=== PATIENT | female | born 1960 | race Caucasian/White ===

== ENCOUNTER 2017-08-10 14:00 | Outpatient (CLI) | payer OTHER ==
--- NOTE | 2017-08-23 11:19 | MMO ---
BILATERAL SCREENING MAMMOGRAM: Date: 08/10/17 COMPARISON: 10/10/12. HISTORY: Screening mammography. FINDINGS: This patient's mammogram was interpreted with the assistance of computer-aided detection. There are scattered fibroglandular densities. Stable intramammary node present on the right. No domin ant mass or architectural distortion. No concerning microcalcifications are seen. IMPRESSION: BIRADS 2: Benign Finding(s) Annual screening mammography recommended. POS: [facility]
== END 2017-08-10 14:01 | disposition home or self-care (01) ==
LOC: SCSMAMMO 14:00
PROVIDERS: ATTEND Family Medicine
DX: Z12.31 Encounter for screening mammogram for malignant neoplasm of breast (principal)
CPT/HCPCS: 77067

== ENCOUNTER 2017-11-02 13:43 | Outpatient (CLI) | payer OTHER ==
[2017-11-02] MEDS ORDERED: Iopamidol 370 76% 100 ML VIAL ONE (14:46)
== END 2017-11-02 13:44 | disposition home or self-care (01) ==
LOC: BICCT 13:43
PROVIDERS: ATTEND Specialist
DX: R10.9 Unspecified abdominal pain (principal)
CPT/HCPCS: 74177

== ENCOUNTER 2018-01-12 09:52 | Observation (INO) | payer OTHER ==
[2018-01-11 15:56] VITALS: BMI 38.9
[2018-01-12] MEDS ORDERED: Lidocaine 1% (PF) 30 ML VIAL ONE (11:29)
[2018-01-12] MEDS ORDERED: Nitroglycerin 100MG/250ML BOT 0 ML ONE (11:32)
[2018-01-12] MEDS ORDERED: Heparin 10,000 UNITS/1 ML VIAL ONE ×2 (11:32→12:51)
[2018-01-12] MEDS ORDERED: Verapamil 5 MG/2 ML VIAL ONE (11:32)
[2018-01-12] MEDS ORDERED: Nitroglycerin 50 MG/250 ML BOT 0 ML ONE (11:33)
[2018-01-12] MEDS ORDERED: Nitroglycerin 100MG/250ML BOT 250 ML ONE ×2 (11:33→11:38)
[2018-01-12] MEDS ORDERED: Fentanyl 100 MCG/2 ML VIAL ONE (12:09)
[2018-01-12] MEDS ORDERED: Midazolam HCl 2 mg/2 ml Vial ONE ×2 (12:10→12:52)
[2018-01-12] MEDS ORDERED: Nitroglycerin 0.4 MG TAB (25 Tab Bottle) SL PRN (13:12)
[2018-01-12] MEDS ORDERED: Acetaminophen/Codeine 30-300mg Tablet PO PRN (13:12)
[2018-01-12] MEDS ORDERED: Milk Of Magnesia 30 ML UDCUP PO PRN (13:12)
[2018-01-12] MEDS ORDERED: traMADol HCl 50 MG TAB PO PRN (13:12)
[2018-01-12] MEDS ORDERED: Mag-Al 1200 mg/1200 mg/30 ML UDCUP PO PRN (13:12)
[2018-01-12] MEDS ORDERED: Iopamidol 370 76% 100 ML VIAL ONE (13:13)
[2018-01-12] MEDS ORDERED: Sodium Chloride 0.9% 1,000 ML IV SCH (13:15)
[2018-01-12] MEDS: TICAGRELOR 90 MG TABLET PO SCH (20:55)
[2018-01-12] MEDS ORDERED: Atorvastatin Calcium 40 MG TAB PO SCH (21:00)
[2018-01-13 06:03] LABS: #Basophils 0.1 thou/uL (0.0-0.2); #Eosinphils 0.1 thou/uL (0.0-0.7); #Monocytes 0.8 thou/uL (0.11-0.59); #Neutrophils 5.2 thou/uL (1.40-6.50); %Eosinophils 1.6 % (0.0-10.0); %Lymphocytes 23.9 % (21.0-51.0); %Monocytes 10.2 % (0.0-10.0); %Neutrophils 63.3 % (42.0-75.0); Hemoglobin 12.7 g/dL (12.0-16.0); Mean Corpuscular HGB CONC 32.7 g/dL (32.0-36.0); Mean Corpuscular Hemoglobin 31.2 pg (27.0-31.0); Mean Corpuscular Volume 95.4 fL (78.0-98.0); Mean Platelet Volume 7.3 fL (7.4-10.4); Platelet Count 269 thou/uL (130-400); RBC Distribution Width 13.6 % (11.5-14.5); Red Blood Cell (RBC) Count 4.07 mill/uL (4.20-5.40); White Blood Cell (WBC) Count 8.2 thou/uL (4.8-10.8)
[2018-01-13 06:16] LABS: ALT (SGPT) 20 U/L (8-55); AST (SGOT) 22 U/L (5-34); Albumin 4.1 g/dL (3.5-5.0); Alkaline Phosphatase 67 U/L (40-150); Anion Gap 13 mmol/L (10-20); BUN (Urea Nitrogen) 14 mg/dL (9.8-20.1); Bilirubin, Total 0.8 mg/dL (0.2-1.2); Calc. Creatinine Clearance 131 mL/min (70-130); Calcium 9.6 mg/dL (7.8-10.44); Carbon Dioxide 23 mmol/L (22-29); Chloride 107 mmol/L (98-107); Estimated GFR-MDRD 72; Globulin 3.3 g/dL (2.4-3.5); Glucose 120 mg/dL (70-105); Protein, Total 7.4 g/dL (6.0-8.3); Sodium 139 mmol/L (136-145)
[2018-01-13 08:10] VITALS: BP 154/95; TEMP 97.7
[2018-01-13] MEDS: TICAGRELOR 90 MG TABLET PO SCH (08:22)
--- NOTE | 2018-01-13 10:41 | DIS ---
DATE OF ADMISSION: 01/12/2018 DATE OF DISCHARGE: 01/13/2018 DISCHARGE DIAGNOSIS: . PROCEDURE: Coronary angiography with stent placement to the circumflex artery. HOSPITAL COURSE: Ms. Khan is a very pleasant 57-year-old woman who recently presented with incr eased shortness of breath and chest pressure. She had a left bundle branch block in addition to abno rmal stress study. She failed medical therapy. Coronary angiography was then proposed. She agreed. She underwent coronary angiography on 01/12/2018. She was found to have severe stenosis present to the near ostial portion of an OM branch. No other significant disease present. She underwent succe ssful stent placement with a 3.0 x 20 mm Synergy stent to the area. This did cross the groove circum flex artery, but there was GUILLERMINA 3 flow noted with less than 50% stenosis at the ostium. She did well with no other complications. She did have a small hematoma noted post procedure. This resolved after treatment. Her hospital course was otherwise unremarkable. DISCHARGE MEDICATIONS: Aspirin 81 q.a.m., atorvastatin 40 daily, ticagrelor 90 mg b.i.d., Toprol-XL 25 at bedtime. CONDITION ON DISCHARGE: Stable. FOLLOWUP: Dr. Arenas in 1 week.
--- NOTE | 2018-01-15 10:30 | EKG ---
Test Reason : POST STENT-OM Blood Pressure : / mmHG Vent. Rate : 076 BPM Atrial Rate : 076 BPM P-R Int : 150 ms QRS Dur : 098 ms QT Int : 418 ms P-R-T Axes : 008 -15 007 degrees QTc Int : 470 ms Normal sinus rhythm Minimal voltage criteria for LVH, may be normal variant Borderline ECG When compared with ECG of 09-MAY-2016 11:05, T wave amplitude has decreased in Anterior leads Confirmed by DR. Tootie VICENTE ([id number]) on 01/15/2018 10:30:02 AM Referred By: GEORGE Confirmed By:DR. Tootie VICENTE
--- NOTE | 2018-01-15 10:33 | EKG ---
Test Reason : Blood Pressure : / mmHG Vent. Rate : 076 BPM Atrial Rate : 076 BPM P-R Int : 154 ms QRS Dur : 098 ms QT Int : 428 ms P-R-T Axes : 023 -08 025 degrees QTc Int : 481 ms Sinus rhythm with marked sinus arrhythmia Prolonged QT Possible anterior ischemia Abnormal ECG When compared with ECG of 12-JAN-2018 13:42, (Unconfirmed) No significant change was found Confirmed by DR. Tootie VICENTE ([id number]) on 01/15/2018 10:33:38 AM Referred By: GEORGE Confirmed By:DR. Tootie VICENTE
== END 2018-01-13 10:30 | disposition home or self-care (01) ==
LOC: CCL 09:52 → 2SW 17:51
PROVIDERS: ADMIT Internal Medicine Cardiovascular Disease; ATTEND Internal Medicine Cardiovascular Disease
PROC: 027034Z Dilation of Coronary Artery, One Artery with Drug-eluting Intraluminal Device, Percutaneous Approach (ICD-10-PCS; principal; 2018-01-13)
PROC: 4A023N7 Measurement of Cardiac Sampling and Pressure, Left Heart, Percutaneous Approach (ICD-10-PCS; 2018-01-13)
PROC: B2111ZZ Fluoroscopy of Multiple Coronary Arteries using Low Osmolar Contrast (ICD-10-PCS; 2018-01-13)
DX: I25.10 Atherosclerotic heart disease of native coronary artery without angina pectoris (principal); I44.7 Left bundle-branch block, unspecified; E78.2 Mixed hyperlipidemia; I10 Essential (primary) hypertension; Z79.899 Other long term (current) drug therapy; Z88.2 Allergy status to sulfonamides; Z88.8 Allergy status to other drugs, medicaments and biological substances
CPT/HCPCS: 36415; 80053; 85025; 85347; 92928; 92978; 93005; 93010; 93458; 96360; 96361; 99152; 99153; C1725; C1753; C1769; C1874; C1887; C9600; G0378; J1644; J2001; J2250; J3010

== ENCOUNTER 2018-02-01 16:44 | Outpatient (CLI) | payer OTHER ==
--- NOTE | 2018-02-01 17:37 | RAD ---
RIGHT HIP TWO VIEWS: 02/01/18 HISTORY: Right hip pain for one month. Some spurring along the lateral margin of the acetabulum. The possibility of an underlying labral inj ury should be considered. Joint space itself appears fairly well preserved. No acute changes. IMPRESSION: No evidence of fracture. Spurring along the lateral margin of the acetabulum. POS: [facility]
== END 2018-02-01 16:45 | disposition home or self-care (01) ==
LOC: SCSRAD 16:44
PROVIDERS: ATTEND Emergency Medicine
DX: M25.551 Pain in right hip (principal); M77.8 Other enthesopathies, not elsewhere classified

== ENCOUNTER 2018-03-16 13:39 | Outpatient (CLI) | payer OTHER ==
--- NOTE | 2018-03-16 14:25 | RAD ---
TWO VIEWS CHEST: Comparison: None. History: Dyspnea. FINDINGS: Two views of the chest shows an enlarged cardiomediastinal silhouette. There is no evidence of consol idation, mass, or pleural effusions. Degenerative changes are seen in the spine. A spinal stimulation device is seen in the midthoracic spine. IMPRESSION: No evidence of acute cardiopulmonary disease. POS: [facility]
== END 2018-03-16 13:40 | disposition home or self-care (01) ==
LOC: RAD 13:39
PROVIDERS: ATTEND Internal Medicine Pulmonary Disease
DX: R06.00 Dyspnea, unspecified (principal)
CPT/HCPCS: 71046

== ENCOUNTER 2018-03-30 05:36 | Emergency (ER) | payer OTHER ==
[2018-03-30] MEDS ORDERED: Adacel (T-DAP) 0.5 ML SYRINGE ONE (06:10)
[2018-03-30] MEDS ORDERED: Acetaminophen 500 MG TAB ONE (06:20)
--- NOTE | 2018-03-30 07:51 | CT ---
CT OF THE BRAIN WITHOUT CONTRAST: Date: 03/30/18 INDICATION: Tripped and fell, hitting head on concrete. Hematoma above left eye. COMPARISON: None. FINDINGS: There is a large left supraorbital scalp contusion. Small air fluid level seen within the left maxill halima sinus. No visible displaced facial fracture is grossly evident. Mastoid air cells are clear. No acute intracranial abnormality is evident. Septum pellucidum and third ventricle are midline. IMPRESSION: 1. No acute intracranial abnormality. 2. Large left supraorbital soft tissue hematoma. 3. Air fluid level within left maxillary sinus. No definite displaced facial fracture is grossly ev ident; however, this is incompletely evaluated on the current exam. Recommend consideration for CT of the face without IV contrast for further characterization. POS: [facility]
--- NOTE | 2018-03-30 08:11 | RAD ---
RIGHT HAND 3 VIEWS: Date: 03/30/18 INDICATION: Right hand pain. IMPRESSION: There is scattered osteoarthrosis of the right hand. No acute fracture or subluxation is evident. POS: [facility]
--- NOTE | 2018-03-30 08:13 | RAD ---
RIGHT ELBOW 4 VIEWS: Date: 03/30/18 INDICATION: Fall with right elbow pain. IMPRESSION: No acute fracture or subluxation is evident. No joint capsular distention. POS: [facility]
--- NOTE | 2018-03-30 08:14 | RAD ---
RIGHT KNEE 4 VIEWS: Date: 03/30/18 INDICATION: Fall with right knee pain. COMPARISON: None. IMPRESSION: There is mild osteoarthrosis of the right knee. No joint capsular distention is noted. Soft tissues a re normal appearing. POS: [facility]
== END 2018-03-30 07:01 | disposition home or self-care (01) ==
LOC: ERS 05:36
DX: S00.83XA Contusion of other part of head, initial encounter (principal); S80.211A Abrasion, right knee, initial encounter; F41.9 Anxiety disorder, unspecified; I25.10 Atherosclerotic heart disease of native coronary artery without angina pectoris; W19.XXXA Unspecified fall, initial encounter
CPT/HCPCS: 70450; 90471; 90715

== ENCOUNTER 2018-04-25 15:16 | Outpatient (CLI) | payer OTHER ==
--- NOTE | 2018-04-25 16:09 | RAD ---
TWO VIEWS CHEST: DATE: 04/25/2018. PROVIDED CLINICAL HISTORY: Chest pain and shortness of breath. FINDINGS: Comparison 03/16/2018. Cardiac and mediastinal silhouette is unchanged in appearance. No focal conso lidation, pleural fluid, or pneumothorax apparent. Dorsal column stimulator wires are partially visu alized. IMPRESSION: No evidence for an acute cardiopulmonary process. POS: [facility]
== END 2018-04-25 15:17 | disposition home or self-care (01) ==
LOC: SCSRAD 15:16
PROVIDERS: ATTEND Family Medicine
DX: R00.0 Tachycardia, unspecified (principal)
CPT/HCPCS: 71046

== ENCOUNTER 2018-05-03 10:11 | Outpatient (CLI) | payer OTHER ==
--- NOTE | 2018-05-03 13:00 | RAD ---
ESOPHOGRAM: History: Chest pain. Reflux. Dysphagia. FINDINGS: Air contrast and single column barium evaluation shows post-operative changes of the GE junction cons istent with prior fundoplication. Small portion of the gastric fundus extends superior to the stomach within the fundoplication. There is no evidence of obstruction. A 12 mm barium tablet traversed the esophagus without holdup. Prominent gastroesophageal reflux. Diminished primary and secondary parastolsis with prominent non-te rtiary contractions. IMPRESSION: 1. Post-operative changes at the GE junction with a recurrent hernia into the area of fundoplication to the left of the distal esophagus. 2. Large amount of gastroesophageal reflux and tertiary contractions of the esophagus. POS: [facility]
== END 2018-05-03 10:12 | disposition home or self-care (01) ==
LOC: RAD 10:11
PROVIDERS: ATTEND Physician Assistant Medical
DX: K21.9 Gastro-esophageal reflux disease without esophagitis (principal); K44.9 Diaphragmatic hernia without obstruction or gangrene; R13.10 Dysphagia, unspecified; K43.2 Incisional hernia without obstruction or gangrene; Z98.890 Other specified postprocedural states
CPT/HCPCS: 74220

== ENCOUNTER 2018-06-02 11:19 | Outpatient (CLI) | payer OTHER ==
--- NOTE | 2018-06-02 12:19 | RAD ---
SKULL SERIES FOUR VIEWS: History: Pain and swelling above left eye. FINDINGS: Calvarium appears unremarkable. No abnormal lytic lesion is seen. IMPRESSION: No acute findings. POS: [facility]
== END 2018-06-02 11:20 | disposition home or self-care (01) ==
LOC: SCSRAD 11:19
PROVIDERS: ATTEND Nurse Practitioner Family
DX: T14.8XXA Other injury of unspecified body region, initial encounter (principal); R51 Headache; R22.0 Localized swelling, mass and lump, head; R29.810 Facial weakness; W19.XXXS Unspecified fall, sequela
CPT/HCPCS: 70260

== ENCOUNTER 2018-07-05 17:10 | Emergency (ER) | payer OTHER ==
--- NOTE | 2018-07-05 18:03 | RAD ---
XR Chest 1 View Portable History: [Fever] Comparison: Chest radiograph April 25, 2018 Findings: There are bibasilar airspace opacities as well as lingular opacity. No pneumothorax. No sig nificant effusion. Dorsal constellate is present, similar. Impression: Findings concerning for bibasilar multifocal bronchopneumonia. Follow-up after treatment recommended.
[2018-07-05] MEDS ORDERED: Acetaminophen 500 MG TAB ONE (18:07)
[2018-07-05 18:20] LABS: #Basophils 0.1 thou/uL (0.0-0.2); #Eosinphils 0.1 thou/uL (0.0-0.7); #Lymphocytes 2.4 thou/uL (1.20-3.40); #Monocytes 1.2 thou/uL (0.11-0.59); #Neutrophils 7.8 thou/uL (1.40-6.50); %Basophils 0.6 % (0.0-1.0); %Lymphocytes 21.1 % (21.0-51.0); %Monocytes 10.6 % (0.0-10.0); %Neutrophils 66.8 % (42.0-75.0); Mean Corpuscular HGB CONC 33.9 g/dL (32.0-36.0); Mean Corpuscular Hemoglobin 32.3 pg (27.0-31.0); Mean Corpuscular Volume 95.4 fL (78.0-98.0); Mean Platelet Volume 7.2 fL (7.4-10.4); Platelet Count 265 thou/uL (130-400); RBC Distribution Width 13.9 % (11.5-14.5); Red Blood Cell (RBC) Count 4.03 mill/uL (4.20-5.40); White Blood Cell (WBC) Count 11.6 thou/uL (4.8-10.8)
[2018-07-05 18:54] LABS: ALT (SGPT) 18 U/L (8-55); AST (SGOT) 27 U/L (5-34); Albumin 4.6 g/dL (3.5-5.0); Alkaline Phosphatase 65 U/L (40-150); Anion Gap 14 mmol/L (10-20); BUN (Urea Nitrogen) 9 mg/dL (9.8-20.1); Bilirubin, Total 0.9 mg/dL (0.2-1.2); Calc. Creatinine Clearance 0 mL/min (70-130); Calcium 10.2 mg/dL (7.8-10.44); Carbon Dioxide 27 mmol/L (22-29); Chloride 100 mmol/L (98-107); Estimated GFR-MDRD 52; Globulin 3.4 g/dL (2.4-3.5); Glucose 98 mg/dL (70-105); Potassium 4.3 mmol/L (3.5-5.1); Sodium 137 mmol/L (136-145)
[2018-07-05] MEDS ORDERED: cefTRIAXone\\ROCEPHIN 2 GM VIAL ONE (19:20)
[2018-07-05] MEDS ORDERED: Azithromycin 500 MG VIAL ONE (19:21)
[2018-07-05 20:03] LABS: Troponin I Less than 0.010 ng/mL (< 0.028)
[2018-07-05] MEDS ORDERED: Doxycycline 100 MG CAP PO SCH (20:45)
== END 2018-07-05 20:57 | disposition home or self-care (01) ==
LOC: ERS 17:10
DX: J18.9 Pneumonia, unspecified organism (principal); I10 Essential (primary) hypertension; E78.5 Hyperlipidemia, unspecified; I25.10 Atherosclerotic heart disease of native coronary artery without angina pectoris; F41.9 Anxiety disorder, unspecified; Z79.899 Other long term (current) drug therapy; Z79.82 Long term (current) use of aspirin
CPT/HCPCS: 36415; 71045; 80053; 83605; 84484; 85025; 87040; 87804; 93005; 96365; J0456; J0696; J7620

== ENCOUNTER 2018-08-03 14:37 | Outpatient (CLI) | payer OTHER ==
--- NOTE | 2018-08-03 14:58 | RAD ---
EXAM: Chest 2 views: HISTORY: Community-acquired pneumonia, bilateral persistent cough COMPARISON: None. FINDINGS: Stable dorsal column stimulator leads. Stable hiatal hernia. Heart size:Borderline but stable. Lungs:Clear of acute process. Atherosclerotic changes of the aorta. No confluent pneumonia, overt edema, pleural effusion, pneumothorax, or other significant acute proce ss. IMPRESSION: Stable exam. Atherosclerosis of the aorta. No acute intrathoracic disease.
== END 2018-08-03 14:38 | disposition home or self-care (01) ==
LOC: SCSRAD 14:37
PROVIDERS: ATTEND Family Medicine
DX: J18.9 Pneumonia, unspecified organism (principal); I70.0 Atherosclerosis of aorta
CPT/HCPCS: 71046

== ENCOUNTER 2018-08-16 13:10 | Outpatient (CLI) | payer OTHER ==
--- NOTE | 2018-08-16 16:29 | MMO ---
Bilateral MAMMO Bilat Screen DDI. CLINICAL HISTORY: Patient is 57 years old and is seen for screening. The patient has the following family history of breast cancer: mother, at age 78, malignant (generic). The patient has no personal history of cancer. VIEWS: The views performed were: bilateral craniocaudal and bilateral mediolateral oblique. FILMS COMPARED: The present examination has been compared to prior imaging studies performed at [facility] on 10/10/2012, and at [facility] on 08/10/2017. This study has been interpreted with the assistance of computer-aided detection. MAMMOGRAM FINDINGS: There are scattered fibroglandular densities. Finding 1: There is a stable intramammary lymph node seen in the right breast. Finding 2: There are benign appearing calcifications seen in the right breast. There are no suspicious masses, suspicious calcifications, or new areas of architectural distortion. IMPRESSION: THERE IS NO MAMMOGRAPHIC EVIDENCE OF MALIGNANCY. A ROUTINE FOLLOW-UP MAMMOGRAM IN 1 YEAR IS RECOMMENDED. ACR BI-RADS Category 2 - Benign finding MAMMOGRAPHY NOTE: 1. A negative mammogram report should not delay a biopsy if a dominant of clinically suspicious mass is present. 2. Approximately 10% to 15% of breast cancers are not detected by mammography. 3. Adenosis and dense breasts may obscure an underlying neoplasm.
== END 2018-08-16 13:11 | disposition home or self-care (01) ==
LOC: SCSMAMMO 13:10
PROVIDERS: ATTEND Family Medicine
DX: Z12.31 Encounter for screening mammogram for malignant neoplasm of breast (principal); Z80.3 Family history of malignant neoplasm of breast
CPT/HCPCS: 77067

== ENCOUNTER 2018-08-18 13:16 | Outpatient (CLI) | payer OTHER | END 2018-08-18 13:17 | disposition home or self-care (01) | LOC: CP 13:16 | PROVIDERS: ATTEND Internal Medicine Pulmonary Disease | DX: R06.00 Dyspnea, unspecified (principal) | CPT/HCPCS: 94060; 94727; 94729 ==

== ENCOUNTER 2018-08-23 14:55 | Outpatient (CLI) | payer OTHER ==
--- NOTE | 2018-08-23 15:50 | CT ---
EXAM: High-resolution CT of the chest without contrast HISTORY: Chest pain COMPARISON: None TECHNIQUE: Multiple contiguous axial images were obtained in a CT the chest without contrast. Thin sl ices were taken at large intervals. This was performed in the supine and prone positions. Coronal reformats were performed. FINDINGS: HEART: Normal in size without focal cardiac abnormality. Calcifications in the coronary arteries. MEDIASTINUM: No hilar or mediastinal lymphadenopathy. Evaluation of the mediastinum is limited withou t IV contrast. There is a moderate hiatal hernia. LUNGS: No focal infiltrates, nodules, or masses. Evaluation is limited given the large intervals. No significant interstitial thickening. No honeycombing. No bronchiectasis. No emphysematous changes. PLEURAL SPACE: No pneumothorax or pleural effusion. CHEST WALL SOFT TISSUES: Unremarkable OSSEOUS STRUCTURES: Degenerative changes in the spine. There is a spinal stimulation device with its tip at T5. VISUALIZED SUBDIAPHRAGMATIC STRUCTURES: Unremarkable IMPRESSION: 1. No significant interstitial lung disease. 2. Moderate hiatal hernia
== END 2018-08-23 14:56 | disposition home or self-care (01) ==
LOC: BICCT 14:55
PROVIDERS: ATTEND Internal Medicine Pulmonary Disease
DX: J84.10 Pulmonary fibrosis, unspecified (principal); K44.9 Diaphragmatic hernia without obstruction or gangrene
CPT/HCPCS: 71250

== ENCOUNTER 2018-12-05 15:08 | Inpatient (IN) | payer OTHER ==
--- NOTE | 2018-12-05 16:02 | RAD ---
1 VIEW CHEST: Date: 12/05/18 COMPARISON: 11/19/18. HISTORY: Pain and shortness of breath. FINDINGS: Slight elongation of the aorta. There is cardiomegaly. Pulmonary vessels are within normal limits. Co stophrenic angles are clear. Patchy opacities in the left mid lung. Correlate for atelectasis or poss ible infiltrate. No pneumothorax or acute osseous abnormalities. Dorsal column stimulator is noted. IMPRESSION: Increased interstitial opacities in the left mid lung which may represent atelectasis or infiltrate. Continued surveillance to ensure resolution. POS: [facility]
[2018-12-05 16:07] LABS: #Basophils 0.1 thou/uL (0.0-0.2); #Eosinphils 0.2 thou/uL (0.0-0.7); #Lymphocytes 1.8 thou/uL (1.20-3.40); #Neutrophils 4.4 thou/uL (1.40-6.50); %Basophils 0.9 % (0.0-1.0); %Eosinophils 2.5 % (0.0-10.0); %Lymphocytes 24.6 % (21.0-51.0); %Monocytes 13.2 % (0.0-10.0); %Neutrophils 58.8 % (42.0-75.0); Hemoglobin 9.9 g/dL (12.0-16.0); Mean Corpuscular HGB CONC 32.8 g/dL (32.0-36.0); Mean Corpuscular Volume 91.3 fL (78.0-98.0); Platelet Count 339 thou/uL (130-400); RBC Distribution Width 16.8 % (11.5-14.5); Red Blood Cell (RBC) Count 3.32 mill/uL (4.20-5.40); White Blood Cell (WBC) Count 7.5 thou/uL (4.8-10.8)
[2018-12-05 16:23] LABS: Bilirubin Negative (Negative); Blood, Urine Negative (Negative); Clarity Clear (Clear); Glucose, Urine (Dipstick) Normal (Negative); Leukocyte Negative Leu/uL (Negative); Nitrite Negative (Negative); Protein, Urine (Dipstick) Negative (Neg-Trace); Urobilinogen Normal mg/dL (Less than 2)
[2018-12-05 16:28] LABS: ALT (SGPT) 12 U/L (8-55); AST (SGOT) 18 U/L (5-34); Albumin 4.3 g/dL (3.5-5.0); Alkaline Phosphatase 75 U/L (40-110); Anion Gap 12 mmol/L (10-20); BUN (Urea Nitrogen) 11 mg/dL (9.8-20.1); Bilirubin, Total 0.4 mg/dL (0.2-1.2); CK (CPK) 100 U/L (29-168); Calc. Creatinine Clearance 0 mL/min (70-130); Calcium 9.3 mg/dL (7.8-10.44); Carbon Dioxide 28 mmol/L (22-29); Chloride 106 mmol/L (98-107); Estimated GFR-MDRD 59; Globulin 2.9 g/dL (2.4-3.5); Glucose 151 mg/dL (70-105); Potassium 4.2 mmol/L (3.5-5.1); Protein, Total 7.2 g/dL (6.0-8.3); Sodium 142 mmol/L (136-145)
[2018-12-05] MEDS ORDERED: Ondansetron PF 4 MG/2 ML Vial ONE ×2 (17:23→23:27)
[2018-12-05] MEDS ORDERED: Aspirin Chewable 81 MG TAB ONE (17:43)
[2018-12-05] MEDS ORDERED: Aspirin 325 MG TAB ONE (17:43)
[2018-12-05 20:08] LABS: Troponin I Less than 0.010 ng/mL (< 0.028)
[2018-12-05] MEDS ORDERED: Acetaminophen 650 MG Suppository PR PRN (21:11)
[2018-12-05] MEDS ORDERED: Ondansetron ODT 4 MG TAB PO PRN (21:11)
[2018-12-05] MEDS: Acetaminophen 325 MG TAB PO PRN (21:45)
[2018-12-05] MEDS ORDERED: Acetaminophen 325 MG TAB ONE (21:45)
[2018-12-05] MEDS ORDERED: Nitroglycerin 0.4 MG TAB (25 Tab Bottle) SL PRN (23:09)
[2018-12-05] MEDS ORDERED: Morphine 2 MG/ML SYRINGE ONE (23:22)
[2018-12-05] MEDS: Morphine 2 MG/ML SYRINGE SLOW IVP PRN (23:23)
[2018-12-05] MEDS: Ondansetron PF 4 MG/2 ML Vial IVP PRN (23:29)
[2018-12-06 00:13] LABS: Troponin I Less than 0.010 ng/mL (< 0.028)
[2018-12-06 03:35] LABS: #Basophils 0.1 thou/uL (0.0-0.2); #Eosinphils 0.2 thou/uL (0.0-0.7); #Lymphocytes 2.2 thou/uL (1.20-3.40); #Monocytes 0.7 thou/uL (0.11-0.59); #Neutrophils 2.2 thou/uL (1.40-6.50); %Basophils 1.3 % (0.0-1.0); %Monocytes 13.1 % (0.0-10.0); %Neutrophils 40.6 % (42.0-75.0); Hemoglobin 8.7 g/dL (12.0-16.0); Mean Corpuscular HGB CONC 33.5 g/dL (32.0-36.0); Mean Corpuscular Hemoglobin 30.8 pg (27.0-31.0); Platelet Count 278 thou/uL (130-400); RBC Distribution Width 16.8 % (11.5-14.5); Red Blood Cell (RBC) Count 2.82 mill/uL (4.20-5.40); White Blood Cell (WBC) Count 5.3 thou/uL (4.8-10.8)
[2018-12-06] MEDS ORDERED: Ondansetron ODT 4 MG TAB ONE (04:11)
[2018-12-06 04:13] LABS: Anion Gap 9 mmol/L (10-20); BUN (Urea Nitrogen) 15 mg/dL (9.8-20.1); Calc. Creatinine Clearance 0 mL/min (70-130); Calcium 8.4 mg/dL (7.8-10.44); Carbon Dioxide 26 mmol/L (22-29); Chloride 109 mmol/L (98-107); Estimated GFR-MDRD 74; Glucose 126 mg/dL (70-105); Potassium 3.6 mmol/L (3.5-5.1); Sodium 140 mmol/L (136-145)
[2018-12-06] MEDS ORDERED: Morphine 2 MG/ML SYRINGE ONE (04:13)
[2018-12-06] MEDS: Morphine 2 MG/ML SYRINGE SLOW IVP PRN ×2 (04:15→11:13)
[2018-12-06] MEDS ORDERED: Acetaminophen 325 MG TAB ONE (06:16)
[2018-12-06] MEDS: Acetaminophen 325 MG TAB PO PRN (06:17)
--- NOTE | 2018-12-06 06:19 | HP ---
PRIMARY CARE DOCTOR: Dr. Brian Dorado. CODE STATUS: Full code. TIME OF EVALUATION: 8:05 a.m. CHIEF COMPLAINT: Chest pain. HISTORY OF PRESENT ILLNESS: A 58-year-old female with past medical history of hypertension; hyperlipidemia; osteoarthritis; and coronary artery disease, status post stents, came to the hospital after having chest pain for the past couple of days with no clear triggers, no alleviating factors, associated with shortness of breath that is exertional. Symptoms were moderate. The pain was in the substernal area, was a pressure-like pain. REVIEW OF SYSTEMS: CONSTITUTIONAL: No fever, chills, or generalized weakness. RESPIRATORY: No cough or sputum production. CARDIOVASCULAR: Patient has chest pain. No palpitations. GASTROINTESTINAL: No nausea, vomiting, diarrhea, or abdominal pain. ICE SKATING INSTRUCTOR: No dizziness, headache, or feeling lightheaded. GENITOURINARY: No burning with urination. EXTREMITIES: No leg swelling. All other systems were reviewed and negative, except for the findings mentioned above. PAST MEDICAL HISTORY: Positive for the findings mentioned in the HPI. PAST SURGICAL HISTORY: Positive for cholecystectomy, cervical ablation, carpal tunnel syndrome, hernia repair, right foot surgery, right knee surgery, exploratory abdominal surgery, stomach surgery. PSYCHIATRIC HISTORY: Anxiety and depression. FAMILY HISTORY: Reviewed, noncontributory for current presentation. SOCIAL HISTORY: No alcohol. No drug use. No smoking history. KNOWN ALLERGIES: Infliximab and sulfa. REPORTED MEDICATIONS: 1. Benicar. 2. Pravastatin. 3. Aspirin. 4. Plavix. 5. Metoprolol. 6. Sertraline. 7. Methotrexate. 8. Ranexa. PHYSICAL EXAMINATION: VITAL SIGNS: On presentation, blood pressure 118/58 with heart rate 85, respiratory rate was 22, temperature 98, pain 10/10, and oxygen saturation was 98% on room air. GENERAL APPEARANCE: The patient is alert and oriented, in no acute distress. HEENT: Eyes; normal conjunctivae. Moist oral mucosa. Anicteric. No JVD. RESPIRATORY: Bilateral air entry. No rales. No wheezes. Symmetric expansion. CARDIOVASCULAR: Normal rate, regular rhythm. No murmurs. No edema. ABDOMEN: Soft. Normal bowel sounds. MUSCULOSKELETAL: Baseline range of motion and strength. SKIN: Warm and intact. No pallor. No rash. No redness. Capillary refill seems to be intact. NEUROLOGIC: No evidence of any new focal weakness. Cranial nerves seem to be intact. PSYCH: Patient is in good mood. No anxiety. Optimal judgment. DATA REVIEWED: EKG was reviewed. Patient has normal sinus rhythm with a ventricular rate of 75 with TN 160, QRS 84, and QT corrected 484. LABORATORY DATA: Reviewed. The patient has white count 7.5, hemoglobin 9.9, MCV 91.3, and platelet count 339. Chemistry was normal, except for the glucose being 151. Urine was done, was normal. ASSESSMENT AND PLAN: The patient will be placed in the hospital with following medical problems: 1. Chest pain, rule out acute coronary syndrome. Patient has previous coronary artery disease, was taking medications on a daily basis reportedly, reconcile home medications. For coronary artery disease, we will trend troponins. We will monitor on tele. 2. Patient has chronic normocytic anemia, unclear etiology. This is chronic, stable. We will monitor hemoglobin, can be followed as outpatient. 3. Controlled hypertension. Reconcile home medications. Adjust if needed. 4. Hyperlipidemia. Low-cholesterol diet is advised. Reconcile home medications. 5. Deep venous thrombosis prophylaxis. Job ID: [id number] [facility]
[2018-12-06] MEDS ORDERED: Enoxaparin Sodium 40 MG/0.4 ML SYRINGE SC SCH (09:00)
[2018-12-06 09:38] VITALS: BMI 38.3
[2018-12-06] MEDS ORDERED: Clopidogrel Bisulfate 75 MG TAB PO SCH (11:00)
[2018-12-06] MEDS ORDERED: FLU VACC QS2019-20(6MOS UP)/PF 60 MCG/0.5 ML SYRINGE IM ONE (12:00)
[2018-12-06] MEDS ORDERED: Ondansetron PF 4 MG/2 ML Vial ONE (12:14)
[2018-12-06] MEDS ORDERED: PROPOFOL 200 MG/20 ML VIAL ONE (12:14)
[2018-12-06] MEDS ORDERED: ePHEDrine 50 MG/ML VIAL ONE (12:14)
[2018-12-06] MEDS ORDERED: Rocuronium Bromide 10 MG/ML (10ML VIAL) ONE (12:14)
[2018-12-06] MEDS ORDERED: Lidocaine 1% PF 5 ML VIAL ONE (12:14)
[2018-12-06] MEDS ORDERED: EPINEPHrine 1 MG/10 ML Abboject SYRINGE ONE (12:14)
[2018-12-06] MEDS ORDERED: PHENYLEPHRINE-NS 100 MCG/ML 10 ML SYRINGE ONE (12:14)
[2018-12-06] MEDS ORDERED: Succinylcholine Chloride 20 MG/ML 10 ml SYRINGE FS ONE (12:14)
[2018-12-06] MEDS ORDERED: Glycopyrrolate 0.2 MG/ML 5 ML SYRINGE ONE (12:14)
[2018-12-06] MEDS: Ondansetron PF 4 MG/2 ML Vial IVP PRN (14:18)
[2018-12-06] MEDS ORDERED: Sodium Chloride 0.9% 1,000 ML IV SCH ×3 (14:30→15:30)
[2018-12-06] MEDS ORDERED: Pantoprazole 40 MG VIAL IVP SCH (14:30)
[2018-12-06 15:02] LABS: Hemoglobin 8.3 g/dL (12.0-16.0)
[2018-12-06] MEDS ORDERED: Acetaminophen 650 MG in Premix Bag 1 BAG IVPB PRN (16:05)
--- NOTE | 2018-12-06 16:24 | RAD ---
KUB: 12/06/18 HISTORY: NG tube placement. The bowel gas patter is nonobstructed. An NG tube is present with the tip in the stomach. No renal ca lculi are seen. A dorsal column stimulator is partially visualized. IMPRESSION: NG tube with the tip in the stomach. POS: [facility]
--- NOTE | 2018-12-06 16:24 | CON ---
DATE OF CONSULTATION: Consultation and H and P HISTORY OF PRESENT ILLNESS: This is a 58-year-old female with a past medical history significant for coronary artery disease and a recently repaired bleeding gastric ulcer. She is coming into the hospital after approximately a week of shortness of breath and three days of right-sided sharp rib pain radiating from her back to her epigastric area. She reports that the shortness of breath is present when she exerts herself including walking up two flights of stairs, with this normally not make her short of breath. She denies cough, syncope, palpitations or headache. She denies any chest pain at this time or previously. She does report that she is unable to lie flat secondary to acid reflux type symptoms and not shortness of breath. She reports approximately one week ago she was hospitalized for a bleeding gastric ulcer that was repaired. At that time, she had a low blood count. REVIEW OF SYSTEMS: GENERAL: No fever, chills present. Does report weak generalized weakness. RESPIRATORY: Denies cough, but reports shortness of breath. CARDIOVASCULAR: Denies substernal pressure-like chest pain, palpitations, syncope. GI: Denies nausea, vomiting, diarrhea or abdominal pain. NEURO: Denies focal neural deficits, paresthesias, or change in gait. : Denies dysuria. EXTREMITIES: Denies cyanosis or peripheral edema. PAST MEDICAL HISTORY: Positive for coronary artery disease with stent placement in December of 2017, hypertension, hyperlipidemia, osteoarthritis. SOCIAL HISTORY: Denies tobacco, alcohol, or drugs. PHYSICAL EXAMINATION: VITAL SIGNS: On my evaluation, patient's blood pressure was 120/90, pulse was 90, respirations were 20, saturating well on room air with a temp of 97.4 degrees Fahrenheit. GENERAL: The patient in no acute distress. Alert and oriented x3. HEENT: NC/AT. RESPIRATORY: Clear to auscultation bilaterally. No wheezes, rhonchi, or rales. CARDIOVASCULAR: Regular rate and rhythm. S1 and S2, without murmur. PMI within normal limits. ABDOMEN: NTTP. MSK: Reproducible sharp pain over right ribs, 8 through 10. SKIN: Warm, dry, and intact. NEUROLOGIC: No focal neurologic deficit. Cranial nerves 2 through 12 grossly intact. EKG reveals normal sinus rhythm with no ST-segment elevation. Labs reveal a hemoglobin of 8.7, down trending to 8.3 and troponin negative x3. BNP less than 10. Chest x-ray reviewed and reveals no vascular congestion or effusions present. ASSESSMENT AND PLAN: 1. Musculoskeletal: Chest pain, unlikely cardiac in nature. EKG and cardiac enzymes within normal limit. The patient had a cardiac catheterization and stent that was placed within the year by Dr. Arenas. Continue home medicines for this. 2. Symptomatic anemia, likely the source of the patient's shortness of breath. Monitor and transfuse as needed. Medical management per primary team. 3. Consider GI consultation for rebleeding gastric ulcer. 4. Hypertension. Risk factor for coronary artery disease. Continue home medications for this. Medical management per primary team. 5. Hyperlipidemia: Continue home statin medications. Thank you for consultation involved in the care of your patient. Job ID: [id number] [facility]
[2018-12-06] MEDS: Sodium Chloride 0.9% 1,000 ML IV SCH (16:54)
[2018-12-06] MEDS: Pantoprazole 80 MG in Sodium Chloride 0.9% 100 ML IVP SCH (16:54)
[2018-12-06] MEDS ORDERED: ERYTHROMYCIN IVPB SCH (17:00)
[2018-12-06] MEDS ORDERED: SODIUM CHLORIDE 0.9% IVPB SCH (17:00)
--- NOTE | 2018-12-06 19:01 | CON ---
DATE OF CONSULTATION: 12/06/2018 INDICATION FOR CONSULTATION: A 58-year-old female with chest pain and dyspnea on exertion and GI bleed. HISTORY OF PRESENT ILLNESS: This very unfortunate 58-year-old female, who has been followed by Dr. Arenas in the past and last year underwent angioplasty and stent placement. She recently was in the hospital again. She apparently had a drug-eluting stent placed in the obtuse marginal branch of the left circumflex. This was, I believe, in December of 2017. She has been on aspirin and Plavix since that time. She recently was in the hospital with a GI bleed and underwent cauterization of ulcers into the gastric area, had been doing relatively well, but about a week ago, started noticing she had some chest discomfort again. She did start having some nausea and vomiting. She has some back pain and became more short of breath. She presented to the hospital and then earlier today developed GI bleed and she now has an NG tube in place, quite a bit of blood has been removed from the stomach and is now being planned to take her down to the GI lab for further evaluation and possible further cauterization. At this time, her EKG does not show any acute changes. She has had some palpitations. She has short runs of some SVT, but otherwise has been doing relatively stable despite her coronary artery disease. She has become more anemic; however, on admission, her hemoglobin was 9.7, it is now down to 8.3 due to the GI bleeding. Her cardiac enzymes are negative for myocardial infarction. Her sodium is 140, and blood sugar was 126 with a potassium of 3.6. Her EKG does not show any acute changes that would indicate ischemia. PAST MEDICAL HISTORY: Significant for the recent GI bleed as well as for the coronary artery disease. PAST SURGICAL HISTORY: She has had a cervical ablation in the past. She has carpal tunnel surgery. She has a cholecystectomy. She has an inguinal hernia repair. She has had right knee surgery and Adryan fundoplication. FAMILY HISTORY: Please refer to the notes dictated by the resident, who saw the patient also today. SOCIAL HISTORY: Please refer to the notes dictated by the resident, who saw the patient also today. REVIEW OF SYSTEMS: Please refer to the notes dictated by the resident, who saw the patient also today. ALLERGIES: PLEASE REFER TO THE NOTES DICTATED BY THE RESIDENT, WHO SAW THE PATIENT ALSO TODAY. MEDICATIONS: Please refer to the notes dictated by the resident, who saw the patient also today. She has been on aspirin and Plavix and this will need to be held obviously. Hopefully, it has been almost a year since the stent was placed, and she hopefully will be a reasonable candidate to stop the and Plavix and aspirin as it is imperative that we stop these at this time. PHYSICAL EXAMINATION: GENERAL: Reveals a well-developed, well-nourished female, who appears to be ill at this time. She is in mild distress. She has an NG tube in place. VITAL SIGNS: Her blood pressure is 131/85, heart rate is in the low 100s. This appears to be in sinus rhythm at this time. O2 saturation is 99%. She is afebrile, O2 saturation is 100%, respiratory rate is about 25. HEENT: Shows the head to be normocephalic and atraumatic. Carotid pulses are present. There are no significant bruits. CHEST: Actually clear to auscultation. I do not hear any rales, rhonchi, or wheezing at this time. CARDIOVASCULAR: Reveals a regular rate and rhythm. There are no gross murmurs noted. ABDOMEN: Shows obesity. Positive bowel sounds are present. EXTREMITIES: Showed no clubbing or cyanosis. Pedal pulses are present. NEUROLOGIC: The patient appears to be intact. I have appreciated any focal motor deficits at this time. IMPRESSION: 1. Acute gastrointestinal bleed with anemia, most likely causing some chest discomfort. She could have demand ischemia; however, the enzymes remained negative. Her EKG is also unremarkable. We will continue to follow her with you, but we will suggest that we stop the aspirin and Plavix at this time. 2. History of hypertension. This is obviously stable at this time. 3. Dyslipidemia. I would suggest she continue taking her pravastatin when she is able to take p.o. medicines again. Further care of the patient will be by Dr. Arenas when he sees her tomorrow, but would advise to continue with blood transfusions as needed, and hopefully stop the bleeding as soon as possible. Job ID: [id number]
[2018-12-06] MEDS: Rosuvastatin 20 MG TAB PO SCH (19:48)
[2018-12-06 19:53] LABS: Hemoglobin 8.6 g/dL (12.0-16.0)
[2018-12-06] MEDS ORDERED: Fentanyl 100 MCG/2 ML VIAL ONE (20:56)
[2018-12-06] MEDS ORDERED: Piperacillin/Tazobactam 3.375 GM in Sodium Chloride 0.9% 100 ML IVPB SCH (21:00)
[2018-12-06] MEDS ORDERED: Promethazine HCl 25 MG/ML VIAL SLOW IVP PRN (22:46)
[2018-12-06] MEDS ORDERED: Promethazine HCl 25 MG/ML VIAL IM PRN (22:46)
[2018-12-06] MEDS ORDERED: Ondansetron HCl/PF 4 MG/2 ML Vial IVP PRN (22:46)
--- NOTE | 2018-12-06 22:56 | CON ---
DATE OF CONSULTATION: 12/06/2018 CHIEF COMPLAINT: Vomited blood. HISTORY OF PRESENT ILLNESS: Ms. Khan is a 58-year-old woman, who was admitted to the emergency room last night with shortness of breath on exertion. She had some aching pain in the substernal region on and off for the last few days. She has had no diarrhea or constipation or blood in the stool or black stools. No weight changes. She has just undergone upper endoscopy for GI bleed from a bleeding vessel at the site of an ulceration in the fundus of the stomach at the site of prior fundoplication. An electrocautery and hemoclipping of the vessel were performed with good hemostasis at that time. However, now she presents with repeat bleeding that started this afternoon. She had lunch around 11:30 this morning, which included mashed potatoes and carrots. She started vomiting around 2:30 this afternoon with red blood and clots. She vomited multiple times and was transferred to the [facility]. An NG tube was placed with a section of bright red blood and clots. She feels weak and dizzy. Her blood pressure did decrease to the 90s over 60s. Her pulse is in the 100 to 110 range. PHYSICAL EXAMINATION: VITAL SIGNS: She has been afebrile with temperature 97.4. GENERAL: She is pale, but alert and oriented x3. HEENT: Her eyes have no scleral icterus. Oropharynx is clear without lesions. NG tube is now in place with red blood suctioning from it. NECK: No cervical or supraclavicular lymphadenopathy. LUNGS: Clear to auscultation bilaterally. HEART: Tachycardic. S1 and S2 without murmur. ABDOMEN: Soft. Mild tenderness in the epigastric region without guarding. Bowel sounds are present. EXTREMITIES: No lower extremity edema. NEUROLOGIC: Cranial nerves are grossly intact. LABORATORY DATA: Creatinine 0.8, potassium 3.6, bilirubin 0.4, AST 18, ALT 12, alkaline phosphatase 75, albumin 4.3. White blood cell count 7.5, hemoglobin is 8.3 this afternoon, hemoglobin last night was 9.9, platelets 278. IMPRESSION: 1. Recurrent upper gastrointestinal bleeding from the stomach, status post cautery of an actively bleeding vessel in the fundus at the site of the fundoplication back on 11/24/2018. She has hemodynamic instability with this with hypotension and tachycardia. 2. Anemia of acute blood loss. RECOMMENDATIONS: 1. Proton pump inhibitor. 2. Transfusion. 3. EGD this evening. We will work on trying to clear stomach with lavage and erythromycin IV. 4. I reviewed her images in previous operative reports with Dr. Anne. Given the previous dense adhesions around her fundoplication site and upper abdomen as described by Dr. Holley on his previous op note in the area, surgical options would be very difficult. It appears that at best we would if ultimately surgery is required, opening the stomach and trying to oversew the bleeding site would be the most likely expected approach. Again, surgery sounds like it would be quite complicated and will do what we can endoscopically. 5. We were working on improving IV access as well. Job ID: [id number]
--- NOTE | 2018-12-06 23:16 | PRG ---
DATE OF SERVICE: 12/06/2018 SUBJECTIVE: The patient is a 58-year-old female with recent upper GI bleed secondary to gastric ulcer, presented to the emergency room with shortness of breath and chest discomfort. She was admitted to the observation unit to rule out acute coronary syndrome. Cardiology was consulted. Her troponins remain negative. She appeared stable. Later around 2:20 p.m., roselyn kaufman was called due to excessive hematemesis. The patient was also symptomatic, dizzy, and pale. She was transferred to intermediate care unit. She denied any chest pain or palpitations. REVIEW OF SYSTEMS: Cannot be obtained at this time due to hematemesis. Earlier during the day, the patient denied any chest discomfort, palpitations, or syncope. No fever, chills, diarrhea, or melena reported. OBJECTIVE: VITAL SIGNS: During the code green were temperature was 97.4 with heart rate of 129, blood pressure 140/69, respirations of 24 with O2 saturation 97% on room air. GENERAL: The patient in distress due to ongoing hematemesis. LUNGS: Showed scattered rhonchi. No accessory muscle use. No wheezing or rales. HEART: S1 and S2 present. Tachycardic. No rubs or gallops. ABDOMEN: Soft and nontender. Bowel sounds present. No rebound or guarding. EXTREMITIES: 1+ edema in bilateral lower extremity. No calf tenderness. SKIN: Warm and dry. LYMPH NODES: No palpable lymph nodes in the neck. PERIPHERAL VASCULAR: Radial pulses palpable bilaterally, low volume. MUSCULOSKELETAL: No joint swelling or tenderness. LABORATORY FINDINGS: Hemoglobin on admission was 9.9, repeat during the code was 8.3. BUN was 15, creatinine 0.8 with potassium 3.6, sodium of 140. Urinalysis was negative. Chest x-ray on admission by my review showed increased interstitial opacities. Telemetry monitoring by my review showed sinus tachycardia. IMPRESSION: 1. Shortness of breath, the reason for admission to the hospital. 2. Excessive hematemesis that started around 02:20 p.m. Roselyn kaufman was called due to this reason. 3. Recent hospitalization for upper gastrointestinal bleed secondary to gastric ulcer. 4. Acute blood loss anemia. 5. History of Adryan fundoplication. 6. Hypertension. 7. Dyslipidemia. 8. Coronary artery disease, on aspirin and Plavix. 9. Depression, mild, stable. 10. Hyperlipidemia. 11. Obesity with a BMI of 38.4. 12. Chronic kidney disease stage 2. PLAN: The patient was transferred to intermediate care unit for close monitoring. We will start her on IV PPIs. Aspirin and Plavix will be held. We will empirically start her on antibiotics due to questionable aspiration. We will repeat chest x-ray in a.m. The case was discussed with Gastroenterology. Echocardiogram is pending at this time. We will transfuse her with 1 unit of PRBC. We will monitor H and H closely. We will recheck the labs in a.m. Plan of care was discussed with the patient and the at the bedside, they stated understanding. Job ID: [id number]
[2018-12-06] MEDS: Piperacillin/Tazobactam 3.375 GM in Sodium Chloride 0.9% 100 ML IVPB SCH (23:42)
--- NOTE | 2018-12-07 01:08 | OP ---
DATE OF PROCEDURE: 12/06/2018 PROCEDURE PERFORMED: Esophagogastroduodenoscopy with control of hemorrhage. PREOPERATIVE DIAGNOSIS: Upper gastrointestinal bleed and anemia of acute blood loss. DESCRIPTION OF PROCEDURE: Informed consent was obtained from the patient. She was sedated with general anesthesia. The endoscope was advanced easily to the second portion of the duodenum and retroflexion was performed in the stomach. The esophagus had blood reflux from the stomach, but otherwise was normal. The stomach had a large amount of red fresh clot and red liquid blood in the fundus. The antrum of the stomach was unremarkable except for blood staining and the first and second portions of the duodenum had no obvious mucosal abnormalities other than blood staining. The clot was removed in multiple pieces with Gregory Net. Multiple large clots were removed from her mouth in this fashion. Ultimately, the clot was removed and rest of the fundus could be irrigated and suctioned clear. There was a white based ulcer within the somewhat twisted folds of the fundoplication. Next to the ulcer, there was 2 to 3 cm area of ischemic appearing mucosa. There was an intermittently actively bleeding site from this ischemic area similar to the bleeding site from the previous procedure. The bleeding area was injected in three sites around the area with 1 mL each of epinephrine 1:10,000. A total of 3 mL of epinephrine were injected. A hemoclip was placed over the bleeding site with good hemostasis confirmed. The area was very difficult to visualize and could only be seen in retroflex views upon the scope between the folds. Again, further up into the folds of the fundoplication, there appears to be a possible hole or opening of an abscess cavity. This was incompletely visualized. IMPRESSION: 1. White based ulcer within the folds in the fundoplication with ischemic appearing mucosa next to the ulcer. 2. There was an intermittently actively bleeding site within that ischemic area, which was injected with epinephrine and hemoclip was placed over the bleeding site with good hemostasis confirmed. 3. There was a question of small less than 1 cm hole or abscess cavity opening deep within the folds of fundoplication. This was above the area of the ulcer, but could not be visualized completely or adequately. 4. Otherwise normal EGD. A large amount of clot was mobilized from the stomach to achieve visualization and adequate working area. RECOMMENDATIONS: 1. Proton pump inhibitor drip. 2. Follow trend of her hemoglobin and transfuse as necessary. 3. If she develops further symptoms or abdominal pain and obtain CT scan of the abdomen and pelvis with contrast. If necessary, the contrast can be given to an NG tube. Job ID: [id number]
[2018-12-07] MEDS: Pantoprazole 80 MG in Sodium Chloride 0.9% 100 ML IVP SCH ×3 (02:48→20:49)
[2018-12-07] MEDS: Morphine 2 MG/ML SYRINGE SLOW IVP PRN (02:55)
[2018-12-07 04:21] LABS: #Lymphocytes 1.3 thou/uL (1.20-3.40); #Monocytes 0.2 thou/uL (0.11-0.59); %Eosinophils 0.2 % (0.0-10.0); %Lymphocytes 9.7 % (21.0-51.0); %Monocytes 1.4 % (0.0-10.0); %Neutrophils 88.7 % (42.0-75.0); Mean Corpuscular HGB CONC 33.2 g/dL (32.0-36.0); Mean Corpuscular Hemoglobin 30.5 pg (27.0-31.0); Mean Platelet Volume 7.4 fL (7.4-10.4); Platelet Count 281 thou/uL (130-400); RBC Distribution Width 16.5 % (11.5-14.5); Red Blood Cell (RBC) Count 2.63 mill/uL (4.20-5.40); White Blood Cell (WBC) Count 13.5 thou/uL (4.8-10.8)
[2018-12-07 04:41] LABS: ALT (SGPT) 10 U/L (8-55); AST (SGOT) 14 U/L (5-34); Albumin 3.5 g/dL (3.5-5.0); Alkaline Phosphatase 47 U/L (40-110); Anion Gap 12 mmol/L (10-20); BUN (Urea Nitrogen) 28 mg/dL (9.8-20.1); Bilirubin, Total 0.5 mg/dL (0.2-1.2); Calc. Creatinine Clearance 105 mL/min (70-130); Calcium 8.3 mg/dL (7.8-10.44); Carbon Dioxide 21 mmol/L (22-29); Chloride 113 mmol/L (98-107); Estimated GFR-MDRD 58; Globulin 2.5 g/dL (2.4-3.5); Glucose 210 mg/dL (70-105); Magnesium 1.7 mg/dL (1.6-2.6); Potassium 4.2 mmol/L (3.5-5.1); Sodium 142 mmol/L (136-145)
[2018-12-07] MEDS: Piperacillin/Tazobactam 3.375 GM in Sodium Chloride 0.9% 100 ML IVPB SCH ×3 (05:52→17:48)
[2018-12-07] MEDS: Sodium Chloride 0.9% 1,000 ML IV SCH ×2 (05:53→12:29)
--- NOTE | 2018-12-07 07:59 | RAD ---
PORTABLE CHEST 1 VIEW: DATE: 12/07/2018. TIME: 4:33 a.m. HISTORY: Shortness of breath, fever, aspiration. FINDINGS: Comparison is made with the exam of 12/05/2018. There has been mild interval improvement in the interstitial opacities in the left mid lung since the previous study. No lobar consolidation, pneumothoraces, or large effusions are seen. The redding size is stable. The aorta is tortuous. Dorsal column stimulator leads are again seen. POS: [facility]
--- NOTE | 2018-12-07 08:25 | CON ---
DATE OF CONSULTATION: HISTORY OF PRESENT ILLNESS: Brianna Khan is a 58-year-old female who presented to the ER with recurrent upper GI bleed. She was in the hospital not long ago when she had a GI bleed, was seen by GI, underwent endoscopy, was found to have a bleeding ulcer in area of previous fundoplication. She was discharged home, came back again last night with abdominal pain, nausea and vomiting, coughing up coffee-ground material along with some bright red blood. Laureen kaufman was called in because she became hypotensive, diaphoretic, and was transferred to the MICU. REASON FOR CONSULTATION: She is having a nose pain, on the NG tube. Chest pain. PAST MEDICAL HISTORY: Otherwise, pertinent for hypertension, hyperlipidemia, coronary artery disease. PAST SURGICAL HISTORY: Previous surgeries included previous carpal tunnel, cholecystectomy, hernia repair, right knee surgery, stomach wrap, diaphragm repair. SOCIAL HISTORY: No alcohol, tobacco abuse. MEDICATIONS: Home medicine includes, 1. Zoloft 50. 2. Crestor 20. 3. Ranexa 500. 4. Benicar. 5. Nitroglycerin. 6. Metoprolol 25. 7. Folic acid. 8. Plavix 75. 9. Aspirin. 10. Methotrexate 8 tabs once a week. ALLERGIES: SULFA, REMICADE. REVIEW OF SYSTEMS: Otherwise unremarkable. PHYSICAL EXAMINATION: VITAL SIGNS: Blood pressure is fluctuating, the last one was 120/70, pulse 100, respiratory rate 20, she is afebrile. CHEST: Decreased breath sounds, no wheezing. CARDIAC: Normal S1, S2. No gallops. ABDOMEN: No masses. LABORATORY DATA: unremarkable. Lytes are normal. H and H 8 and 25, platelet count is normal. IMPRESSION: 1. Recurrent upper gastrointestinal bleed. 2. Hypertension. 3. Headache. 4. Chest pain. PLAN: is being ordered to make sure the NG tube is in right place. Transfusion, supportive care. GI to reassess. We will follow. Consultation note, 70 minutes, 50% direct patient care. Job ID: [id number] MTDD
[2018-12-07] MEDS: Folic Acid 1 MG TAB PO SCH (08:43)
[2018-12-07] MEDS ORDERED: Aspirin Chewable 81 MG TAB PO SCH (09:00)
[2018-12-07] MEDS ORDERED: Clopidogrel Bisulfate 75 MG TAB PO SCH (09:00)
--- NOTE | 2018-12-07 10:07 | PRG ---
DATE OF SERVICE: 12/07/2018 SUBJECTIVE: This morning, she is awake, alert, and responsive. OBJECTIVE: VITAL SIGNS: Temperature 99, blood pressure 118/60, and respiratory rate 18. LUNGS: No shortness of breath. No wheezing. CHEST: Decreased breath sounds. No wheezing. CARDIAC: Normal S1 and S2. No gallops. ABDOMEN: Soft. LABORATORY DATA: H and H are stable at 8 and 24. Lytes are normal. ASSESSMENT: 1. GI bleed, status post repeat endoscopy and cautery of an ulcer. 2. Sinus tachycardia. 3. Obesity. PLAN: She can be transferred back out of the MICU to monitored bed. Pulmonary will follow while in the MICU. Job ID: [id number]
--- NOTE | 2018-12-07 11:24 | PRG ---
DATE OF SERVICE: 12/07/2018 SUBJECTIVE: Ms. Khan recently was admitted for upper GI bleed. She was found to have an ulceration. She did receive 1 unit of packed red blood cells. She currently is complaining of weakness and shortness of breath. No other complaints. Her hemoglobin this morning was 8.0. OBJECTIVE: VITAL SIGNS: Blood pressure 104/68, pulse 100, and respirations 20. LUNGS: Clear to auscultation. HEART: Regular rate and rhythm. ABDOMEN: Soft, nontender, nondistended. EXTREMITIES: 1+ pitting edema. PERTINENT LABORATORY DATA: Hemoglobin 8.0. Creatinine 0.99, troponin negative. IMPRESSION: 1. Upper gastrointestinal bleed. 2. Coronary artery disease. 3. Status post stent placement. RECOMMENDATIONS: Certainly reasonable to stop aspirin and Plavix. The patient's stent was placed in December of 2017. I would like to proceed with taking aspirin or Plavix when okay from a GI standpoint. Follow up hemoglobin and transfuse if lower and symptoms persist. We will follow. Job ID: [id number]
--- NOTE | 2018-12-07 12:25 | PRG ---
DATE OF SERVICE: 12/07/2018 SUBJECTIVE: The patient is seen and examined at the bedside. OBJECTIVE: VITAL SIGNS: Blood pressure is 104/68, pulse is 100, respiratory rate is 26, temperature is 99.7, and maximal temperature is 99.8. HEENT: Head is atraumatic and normocephalic. Eyes are PERRLA. Sclerae are nonicteric. Oral mucosa is moist. NECK: Supple. LUNGS: Clear. HEART: S1 and S2 normal. Somewhat tachycardic. No S3. No S4. ABDOMEN: Soft. Mildly tender to deeper palpation. No guarding. No masses. EXTREMITIES: No clubbing, cyanosis, or edema. NEUROLOGIC: She follows my commands. She moves all 4 extremities. There is no sensory or motor deficits. LABORATORY DATA: Showed white count of 13.5, hemoglobin of 8.0, hematocrit 24.2, platelet count is 281,000. Sodium of 142, potassium 4.2, chloride 113, CO2 of 21, BUN 28, creatinine 0.99. Glycemia is ranging from 160 to 218. The rest of chemistry is within normal limits. Two sets of troponins within normal limits. IMPRESSION: 1. Upper gastrointestinal bleeding, status post esophagogastroduodenoscopy, which showed gastric ulcer and intermittently actively bleeding site within ischemic area, which was treated with epinephrine and hemoclip. 2. Shortness of breath of unclear etiology. Her recent chest x-ray showed some infiltrate in the left lung, but this looks better than what it was on the previous examination. The patient was seen by project estimator, Dr. Sim. 3. Acute blood loss anemia. 4. History of Adryan fundoplication. 5. Hypertension. 6. Dyslipidemia. 7. Coronary artery disease. Her aspirin and Plavix were put on hold. 8. Depression. 9. Hyperlipidemia. 10. Obesity. 11. Chronic kidney disease stage 2. DISCUSSION: The patient is status post transfusion of 1 unit of PRBCs. She is on IV PPI, Protonix drip. She is continued on Ranexa, Crestor, and Zoloft. Also, she is on antibiotic, which is Zosyn for any possible infectious etiology of her lung findings. Job ID: [id number]
[2018-12-07] MEDS: traMADol HCl 50 MG TAB PO PRN ×2 (13:56→20:48)
[2018-12-07] MEDS: Chloraseptic Spray 180 ml Bottle PO PRN ×2 (17:48→20:49)
--- NOTE | 2018-12-07 17:53 | PRG ---
DATE OF SERVICE: 12/07/2018 SUBJECTIVE: Ms. Khan has no abdominal pain. No nausea or vomiting. She is tolerating clear liquids well. She has had no bowel movements since the endoscopy. OBJECTIVE: VITAL SIGNS: Temperature 99.2, pulse 85, blood pressure 111/62. GENERAL: She is in no acute distress. Alert and oriented x3. LUNGS: Clear to auscultation bilaterally. HEART: Regular rate and rhythm without murmur. ABDOMEN: Soft, nontender, nondistended. Bowel sounds are present. EXTREMITIES: No lower extremity edema. LABORATORY DATA: Hemoglobin is 8.0. Creatinine 0.99. IMPRESSION: 1. Upper gastrointestinal bleed secondary to active bleeding from a vessel in an ischemic area next to a gastric ulcer in the gastric fundus and within the folds of the fundoplication. Hemostasis was achieved with a hemoclip placement and injection of epinephrine. She has no further overt bleeding today. 2. Anemia of acute blood loss. 3. Coronary artery disease status post coronary stent in 12/2017. This was a drug-eluting stent. Aspirin and Plavix are held for now. RECOMMENDATIONS: 1. If she has no further bleeding tomorrow, she can likely transition to twice daily pantoprazole IV. 2. If she tolerates full liquids well today, then she could be advanced to regular diet tomorrow. 3. Aspirin and Plavix are held. I would continue to hold these for a couple of weeks and then restart aspirin at low dose after that time. Endoscopy to check for ulcer healing could be considered. Job ID: [id number]
[2018-12-07] MEDS: Rosuvastatin 20 MG TAB PO SCH (20:49)
[2018-12-08] MEDS: Piperacillin/Tazobactam 3.375 GM in Sodium Chloride 0.9% 100 ML IVPB SCH ×5 (00:09→23:43)
[2018-12-08 06:33] LABS: #Basophils 0.1 thou/uL (0.0-0.2); #Eosinphils 0.1 thou/uL (0.0-0.7); #Lymphocytes 2.8 thou/uL (1.20-3.40); #Monocytes 1.1 thou/uL (0.11-0.59); %Basophils 0.4 % (0.0-1.0); %Eosinophils 0.6 % (0.0-10.0); %Lymphocytes 19.9 % (21.0-51.0); %Neutrophils 71.1 % (42.0-75.0); Hemoglobin 5.9 g/dL (12.0-16.0); Mean Corpuscular HGB CONC 34.3 g/dL (32.0-36.0); Mean Corpuscular Hemoglobin 30.8 pg (27.0-31.0); Mean Corpuscular Volume 89.7 fL (78.0-98.0); Platelet Count 227 thou/uL (130-400); RBC Distribution Width 16.8 % (11.5-14.5); Red Blood Cell (RBC) Count 1.91 mill/uL (4.20-5.40); White Blood Cell (WBC) Count 14.1 thou/uL (4.8-10.8)
[2018-12-08 06:44] LABS: Anion Gap 9 mmol/L (10-20); BUN (Urea Nitrogen) 18 mg/dL (9.8-20.1); Calc. Creatinine Clearance 112 mL/min (70-130); Calcium 7.9 mg/dL (7.8-10.44); Carbon Dioxide 25 mmol/L (22-29); Chloride 112 mmol/L (98-107); Estimated GFR-MDRD 60; Glucose 124 mg/dL (70-105); Potassium 4.2 mmol/L (3.5-5.1); Sodium 142 mmol/L (136-145)
[2018-12-08 07:26] LABS: #Basophils 0.1 thou/uL (0.0-0.2); #Eosinphils 0.1 thou/uL (0.0-0.7); #Lymphocytes 2.7 thou/uL (1.20-3.40); #Neutrophils 10.2 thou/uL (1.40-6.50); %Basophils 0.5 % (0.0-1.0); %Eosinophils 0.5 % (0.0-10.0); %Lymphocytes 19.5 % (21.0-51.0); %Monocytes 7.1 % (0.0-10.0); %Neutrophils 72.4 % (42.0-75.0); Hemoglobin 6.1 g/dL (12.0-16.0); Mean Corpuscular HGB CONC 34.7 g/dL (32.0-36.0); Mean Corpuscular Hemoglobin 31.1 pg (27.0-31.0); Mean Corpuscular Volume 89.8 fL (78.0-98.0); Mean Platelet Volume 7.1 fL (7.4-10.4); Platelet Count 227 thou/uL (130-400); RBC Distribution Width 16.9 % (11.5-14.5); Red Blood Cell (RBC) Count 1.95 mill/uL (4.20-5.40)
[2018-12-08] MEDS ORDERED: hydrALAZINE 20 MG/ML VIAL SLOW IVP PRN (08:29)
[2018-12-08] MEDS ORDERED: Zolpidem Tartrate 5 MG TAB PO PRN (08:29)
[2018-12-08] MEDS ORDERED: Loperamide HCl 2 MG CAP PO PRN (08:29)
[2018-12-08] MEDS ORDERED: Artificial Tears 18 DROP/0.9 ML EA EYE PRN (08:29)
[2018-12-08] MEDS ORDERED: Bisacodyl 5 MG TAB PO PRN (08:29)
[2018-12-08] MEDS ORDERED: Diabetic Tussin 200 MG/10 ML UDCUP PO PRN (08:29)
[2018-12-08] MEDS ORDERED: Cepastat Lozenges 1 LOZ PO PRN (08:29)
[2018-12-08] MEDS ORDERED: Sodium Chloride 0.65% Nasal 44 ML BOT EA NARE PRN (08:29)
[2018-12-08] MEDS ORDERED: Loratadine 10 MG TAB PO PRN (08:29)
--- NOTE | 2018-12-08 09:33 | PRG ---
DATE OF SERVICE: 12/08/2018 SUBJECTIVE: This morning, the patient is awake, alert, and responsive. No pain. No shortness of breath. H and H are low 6 and 17. She is getting 2 units of packed cells. OBJECTIVE: VITAL SIGNS: Blood pressure is 127/80, saturations are 99, respirations 18, and temperature 98. CHEST: Decreased breath sounds. No wheezing. CARDIAC: Normal S1 and S2. No gallops. ABDOMEN: No masses. LABORATORY DATA: Lytes are normal. ASSESSMENT AND PLAN: Gastrointestinal bleed massive, stable. Agree with transfusion, eventually placement. Job ID: [id number]
[2018-12-08] MEDS: Folic Acid 1 MG TAB PO SCH (10:08)
[2018-12-08] MEDS: Senokot S 8.6-50 MG TAB PO PRN (10:09)
[2018-12-08] MEDS: HYDROcodone/Acetaminophen 5/325 mg Tablet PO PRN ×2 (13:19→20:30)
--- NOTE | 2018-12-08 13:47 | PDOC.HOSPP ---
- Subjective Encounter Date: 12/08/18 Encounter Time: 11:30 Subjective: Patient seen and examined. No new complaints. No overnight events pt does not have BM yet, today H & H low - Objective Vital Signs & Weight: Vital Signs (12 hours) Temp Pulse Resp BP Pulse Ox 12/08/18 13:12 98.6 F 78 18 119/76 100 12/08/18 12:00 98.2 F 12/08/18 11:50 98.6 F 12/08/18 11:14 98.2 F 83 18 110/73 99 12/08/18 09:59 98.4 F 78 18 132/77 98 12/08/18 08:19 98.0 F 75 18 127/80 99 12/08/18 08:00 99 12/08/18 07:58 97.4 F L 72 18 125/71 98 12/08/18 07:33 98.6 F 12/08/18 03:52 98.4 F Weight Weight 242 lb 1.6 oz Most Recent Monitor Data Heart Rate from ECG 80 NIBP 106/64 NIBP BP-Mean 78 Respiration from ECG 27 SpO2 100 I&O: 12/07/18 12/08/18 12/09/18 06:59 06:59 06:59 Intake Total 1901 1900 1050 Output Total 1950 1950 Balance -49 -50 1050 Result Diagrams: 12/08/18 07:19 12/08/18 06:11 Additional Labs: Accuchecks 12/08/18 12/08/18 12/07/18 05:23 00:07 18:09 POC Glucose 129 H 136 H 194 H EKG Reviewed by me: Yes Hospitalist ROS - Review of Systems Constitutional: reports: weakness. denies: fever, chills, sweats, malaise, other Eyes: denies: pain, vision change, conjunctivae inflammation, eyelid inflammation, redness, other ENT: denies: ear pain, ear discharge, nose pain, nose discharge, nose congestion , mouth pain, mouth swelling, throat pain, throat swelling, other Respiratory: denies: cough, dry, shortness of breath, hemoptysis, SOB with excertion, pleuritic pain, sputum, wheezing, other Cardiovascular: denies: chest pain, palpitations, orthopnea, paroxysmal noc. dyspnea, edema, light headedness, other Gastrointestinal: reports: constipation. denies: nausea, vomiting, abdominal pain, diarrhea, melena, hematochezia, other Genitourinary: denies: dysuria, frequency, incontinence, hematuria, retention, other Musculoskeletal: denies: neck pain, shoulder pain, arm pain, back pain, hand pain, leg pain, foot pain, other Skin: denies: rash, lesions, guru, bruising, other - Medication Medications: Active Medications Generic Name Dose Route Start Last Admin Trade Name Freq PRN Reason Stop Dose Admin Acetaminophen 650 mg 12/05/18 21:11 12/06/18 06:17 Tylenol PO 650 mg Q4H PRN Administration Headache/Fever/Mild Pain (1-3) Hydrocodone Bitart/Acetaminophen 1 tab 12/08/18 08:29 12/08/18 13:19 [place] 5/325 PO 1 tab Q4H PRN Administration Moderate Pain (4-6) Folic Acid 1 mg 12/07/18 09:00 12/08/18 10:08 Folvite PO 1 mg QAM YOSELIN Administration Pantoprazole Sodium 80 mg/ 100 mls @ 10 mls/hr 12/06/18 14:30 12/07/18 20:49 Sodium Chloride IVP 100 mls INF YOSELIN Administration Piperacillin Sod/Tazobactam 100 mls @ 200 mls/hr 12/06/18 23:59 12/08/18 13: 12 Sod 3.375 gm/ Sodium Chloride IVPB 100 mls Q6HR YOSELIN Administration Morphine Sulfate 2 mg 12/05/18 23:10 12/07/18 02:55 Morphine SLOW IVP 2 mg Q4H PRN Administration Severe Pain (7-10) Ondansetron HCl 4 mg 12/05/18 21:11 12/06/18 04:15 Zofran Odt PO 4 mg Q6H PRN Administration Nausea/Vomiting Ondansetron HCl 4 mg 12/05/18 21:11 12/06/18 14:18 Zofran IVP 4 mg Q6H PRN Administration Nausea/Vomiting Phenol 1 ml 12/07/18 14:32 12/07/18 20:49 Chloraseptic [place] 180 Ml Bot PO 1 spray BIDPRN PRN Administration Sore Throat Ranolazine 500 mg 12/06/18 21:00 12/08/18 10:08 Ranexa PO 500 mg BID YOSELIN Administration Rosuvastatin Calcium 20 mg 12/06/18 21:00 12/07/18 20:49 Crestor PO 20 mg HS YOSELIN Administration Senna/Docusate Sodium 2 tab 12/08/18 08:29 12/08/18 10:09 Senokot S PO 2 tab BID PRN Administration Constipation Sertraline HCl 50 mg 12/07/18 09:00 12/08/18 10:09 Zoloft PO 50 mg QAM YOSELIN Administration - Exam General Appearance: NAD, awake alert Eye: PERRL, anicteric sclera ENT: normocephalic atraumatic, no oropharyngeal lesions Neck: supple, symmetric, no JVD, no thyromegaly Heart: RRR, no murmur, no gallops, no rubs, normal peripheral pulses Respiratory: CTAB, no wheezes, no rales, no ronchi, normal chest expansion Gastrointestinal: soft, non-tender, non-distended, normal bowel sounds Extremities: no cyanosis, no clubbing, no edema Skin: normal turgor, no lesions, no rashes Neurological: cranial nerve grossly intact, normal sensation to touch, no focal deficits, no new deficit Musculoskeletal: normal tone, normal strength Psychiatric: normal affect, normal behavior, A&O x 3 Hosp A/P (1) Anemia due to acute blood loss Code(s): D62 - ACUTE POSTHEMORRHAGIC ANEMIA Status: Acute (2) Gastric ulcer Code(s): K25.9 - GASTRIC ULCER, UNSP ACUTE OR CHRONIC, W/O HEMOR OR PERF Status: Acute (3) UGIB (upper gastrointestinal bleed) Code(s): K92.2 - GASTROINTESTINAL HEMORRHAGE, UNSPECIFIED Status: Acute (4) CKD (chronic kidney disease), stage III Code(s): N18.3 - CHRONIC KIDNEY DISEASE, STAGE 3 (MODERATE) Status: Chronic (5) Chronic depression Code(s): F32.9 - MAJOR DEPRESSIVE DISORDER, SINGLE EPISODE, UNSPECIFIED Status : Chronic (6) Dyslipidemia Code(s): E78.5 - HYPERLIPIDEMIA, UNSPECIFIED Status: Chronic (7) GERD (gastroesophageal reflux disease) Code(s): K21.9 - GASTRO-ESOPHAGEAL REFLUX DISEASE WITHOUT ESOPHAGITIS Status: Chronic (8) History of Adryan fundoplication Code(s): Z98.890 - OTHER SPECIFIED POSTPROCEDURAL STATES Status: Chronic (9) Hypertension Code(s): I10 - ESSENTIAL (PRIMARY) HYPERTENSION Status: Chronic (10) Obesity (BMI 30-39.9) Code(s): E66.9 - OBESITY, UNSPECIFIED Status: Chronic - Plan old records reviewed/req 12/08/18- transfuse 2 unit PRBC today, check H & H after transfusion and later today and repeat labs tomorrow, continue full liquid diet, continue protonix, medication reviewed as above, symptomatic treatment, monitor in imcu for now
[2018-12-08 15:57] LABS: #Basophils 0.1 thou/uL (0.0-0.2); #Eosinphils 0.1 thou/uL (0.0-0.7); #Lymphocytes 3.5 thou/uL (1.20-3.40); #Monocytes 1.4 thou/uL (0.11-0.59); #Neutrophils 10.6 thou/uL (1.40-6.50); %Basophils 0.4 % (0.0-1.0); %Eosinophils 0.9 % (0.0-10.0); %Lymphocytes 22.3 % (21.0-51.0); %Monocytes 8.9 % (0.0-10.0); %Neutrophils 67.5 % (42.0-75.0); Hemoglobin 8.2 g/dL (12.0-16.0); Mean Corpuscular HGB CONC 34.3 g/dL (32.0-36.0); Mean Corpuscular Hemoglobin 30.4 pg (27.0-31.0); Mean Corpuscular Volume 88.8 fL (78.0-98.0); Mean Platelet Volume 7.1 fL (7.4-10.4); Platelet Count 237 thou/uL (130-400); RBC Distribution Width 15.6 % (11.5-14.5); White Blood Cell (WBC) Count 15.7 thou/uL (4.8-10.8)
--- NOTE | 2018-12-08 17:56 | PRG ---
DATE OF SERVICE: 12/08/2018 SUBJECTIVE: The patient feels fine without any complaint. She is tolerating regular diet. There may be one "tarry stool" per patient, but not witnessed. She denies any nausea, vomiting, or abdominal pain. OBJECTIVE: VITAL SIGNS: Temperature is 99.7, blood pressure 115/73, and pulse of 87. GENERAL: She is alert, eating dinner, no distress. HEENT: Shows anicteric sclerae. CV: Shows normal S1 and S2. Regular rate and rhythm. CHEST: Shows breath sounds. ABDOMEN: Protuberant, but soft and nontender. She has active bowel sounds. EXTREMITIES: Shows no edema. LABORATORY DATA: Hemoglobin dropped from 8 to 5.9 g-dL overnight. After 2 units of RBC, hemoglobin is 8.2 and platelet count 237. Electrolytes within normal range. Creatinine 0.95. ASSESSMENT: 1. Acute anemia from gastrointestinal blood loss, hemoglobin dropped acutely overnight without much significant overt bleeding. She responded well to transfusion with appropriate increase in her blood count. 2. Upper gastrointestinal bleed from a bleed within fundoplication fold, status post injection and hemoclip placement with hemostasis at the time of the procedure. 3. Coronary artery disease, good echocardiogram. RECOMMENDATION: 1. Continue observation. 2. Change to pantoprazole 40 mg IV q.12. 3. The patient can likely be transferred to the floor for further observation tomorrow. 4. Overall stable and doing reasonably well from GI standpoint. We will repeat endoscopy only if she displays signs of bleeding or recurrent bleeding. Job ID: [id number]
[2018-12-08 18:45] LABS: #Eosinphils 0.1 thou/uL (0.0-0.7); #Lymphocytes 3.3 thou/uL (1.20-3.40); #Monocytes 1.1 thou/uL (0.11-0.59); #Neutrophils 8.7 thou/uL (1.40-6.50); %Basophils 0.2 % (0.0-1.0); %Lymphocytes 24.9 % (21.0-51.0); %Monocytes 7.9 % (0.0-10.0); Hemoglobin 8.3 g/dL (12.0-16.0); Mean Corpuscular Hemoglobin 30.7 pg (27.0-31.0); Mean Corpuscular Volume 90.4 fL (78.0-98.0); Platelet Count 239 thou/uL (130-400); RBC Distribution Width 16.2 % (11.5-14.5); Red Blood Cell (RBC) Count 2.69 mill/uL (4.20-5.40); White Blood Cell (WBC) Count 13.2 thou/uL (4.8-10.8)
--- NOTE | 2018-12-08 19:22 | PRG ---
DATE OF SERVICE: 12/08/2018 SUBJECTIVE: Ms. Khan is in better spirits today than yesterday. She has less issues. She did require 2 units of packed blood cells due to continued low blood count. OBJECTIVE: VITAL SIGNS: Blood pressure 136/36, pulse 81, temperature afebrile. LUNGS: Clear to auscultation. HEART: Regular rate and rhythm. ABDOMEN: Soft, nontender. EXTREMITIES: No edema. IMPRESSION: 1. GI bleed. 2. Coronary artery disease. 3. Status post stent placement. RECOMMENDATIONS: At this point, I have no further CV recs. I would like to start aspirin or Plavix when okay with GI. I would not start both. Otherwise, she appears hemodynamically stable. Job ID: [id number]
[2018-12-08] MEDS: Rosuvastatin 20 MG TAB PO SCH (20:29)
[2018-12-08] MEDS: Pantoprazole 40 MG VIAL IVP SCH (20:30)
--- NOTE | 2018-12-08 23:14 | EKG ---
Test Reason : Blood Pressure : / mmHG Vent. Rate : 112 BPM Atrial Rate : 112 BPM P-R Int : 138 ms QRS Dur : 072 ms QT Int : 344 ms P-R-T Axes : 056 008 042 degrees QTc Int : 469 ms Sinus tachycardia Otherwise normal ECG When compared with ECG of 05-DEC-2018 15:24, (Unconfirmed) Vent. rate has increased BY 37 BPM T wave amplitude has increased in Anterior leads Confirmed by Lynda MONROE ([id number]) on 12/08/2018 11:14:05 PM Referred By: Confirmed By:Lynda MONROE
[2018-12-09] MEDS: Piperacillin/Tazobactam 3.375 GM in Sodium Chloride 0.9% 100 ML IVPB SCH (05:18)
[2018-12-09 06:27] LABS: #Eosinphils 0.2 thou/uL (0.0-0.7); #Lymphocytes 2.8 thou/uL (1.20-3.40); #Monocytes 0.8 thou/uL (0.11-0.59); %Basophils 0.5 % (0.0-1.0); %Eosinophils 2.7 % (0.0-10.0); %Lymphocytes 31.5 % (21.0-51.0); %Monocytes 9.2 % (0.0-10.0); %Neutrophils 56.1 % (42.0-75.0); Hemoglobin 7.5 g/dL (12.0-16.0); Mean Corpuscular HGB CONC 34.6 g/dL (32.0-36.0); Mean Corpuscular Hemoglobin 31.3 pg (27.0-31.0); Mean Corpuscular Volume 90.7 fL (78.0-98.0); Mean Platelet Volume 7.1 fL (7.4-10.4); Platelet Count 200 thou/uL (130-400); RBC Distribution Width 16.2 % (11.5-14.5); Red Blood Cell (RBC) Count 2.38 mill/uL (4.20-5.40)
[2018-12-09 06:44] LABS: Anion Gap 10 mmol/L (10-20); BUN (Urea Nitrogen) 15 mg/dL (9.8-20.1); Calc. Creatinine Clearance 102 mL/min (70-130); Carbon Dioxide 24 mmol/L (22-29); Chloride 110 mmol/L (98-107); Estimated GFR-MDRD 54; Glucose 99 mg/dL (70-105); Potassium 3.9 mmol/L (3.5-5.1); Sodium 140 mmol/L (136-145)
[2018-12-09] MEDS: Folic Acid 1 MG TAB PO SCH (08:22)
[2018-12-09] MEDS: Pantoprazole 40 MG VIAL IVP SCH ×2 (08:23→20:38)
--- NOTE | 2018-12-09 09:43 | PRG ---
DATE OF SERVICE: 12/09/2018 OBJECTIVE: VITAL SIGNS: Temperature 99, blood pressure 139/86, respirations 16, pulse 80. GENERAL: No pain. LUNGS: No shortness of breath. CHEST: Decreased breath sounds. No wheezing. CARDIAC: Normal S1 and S2. No gallops. ABDOMEN: No masses. LABORATORY DATA: Lytes are normal. H and H are 7.5 and 21. ASSESSMENT: Gastrointestinal bleed, peptic ulcer disease, hypertension. PLAN: I see no reason to continue antibiotics at this stage. She can be transferred out of the MICU. Pulmonary will follow at a distance. Call if needed. Job ID: [id number]
[2018-12-09] MEDS ORDERED: Iron, Sodium Ferric Gluconate 250 MG in Sodium Chloride 0.9% 250 ML 250 ML IVPB SCH (11:00)
--- NOTE | 2018-12-09 12:33 | PDOC.HOSPP ---
- Subjective Encounter Date: 12/09/18 Encounter Time: 11:00 Subjective: Patient seen and examined. No new complaints. No overnight events she had yesterday BM which was malenotic - Objective Vital Signs & Weight: Vital Signs (12 hours) Temp Pulse Ox 12/09/18 11:14 99.6 F 12/09/18 08:00 96 12/09/18 07:37 99.4 F 12/09/18 03:38 98.5 F 12/09/18 03:11 95 Weight Weight 243 lb Most Recent Monitor Data Heart Rate from ECG 72 NIBP 166/89 NIBP BP-Mean 114 Respiration from ECG 26 SpO2 98 I&O: 12/08/18 12/09/18 12/10/18 06:59 06:59 06:59 Intake Total 1900 2250 Output Total 1950 1500 Balance -50 750 Result Diagrams: 12/09/18 06:00 12/09/18 06:00 EKG Reviewed by me: Yes Hospitalist ROS - Review of Systems Constitutional: denies: fever, chills, sweats, weakness, malaise, other ENT: denies: ear pain, ear discharge, nose pain, nose discharge, nose congestion , mouth pain, mouth swelling, throat pain, throat swelling, other Respiratory: denies: cough, dry, shortness of breath, hemoptysis, SOB with excertion, pleuritic pain, sputum, wheezing, other Cardiovascular: denies: chest pain, palpitations, orthopnea, paroxysmal noc. dyspnea, edema, light headedness, other Gastrointestinal: reports: melena. denies: nausea, vomiting, abdominal pain, diarrhea, constipation, hematochezia, other Genitourinary: denies: dysuria, frequency, incontinence, hematuria, retention, other Musculoskeletal: denies: neck pain, shoulder pain, arm pain, back pain, hand pain, leg pain, foot pain, other Skin: denies: rash, lesions, guru, bruising, other - Medication Medications: Active Medications Generic Name Dose Route Start Last Admin Trade Name Freq PRN Reason Stop Dose Admin Acetaminophen 650 mg 12/05/18 21:11 12/06/18 06:17 Tylenol PO 650 mg Q4H PRN Administration Headache/Fever/Mild Pain (1-3) Hydrocodone Bitart/Acetaminophen 1 tab 12/08/18 08:29 12/08/18 20:30 [place] 5/325 PO 1 tab Q4H PRN Administration Moderate Pain (4-6) Folic Acid 1 mg 12/07/18 09:00 12/09/18 08:22 Folvite PO 1 mg QAM YOSELIN Administration Guaifenesin 200 mg 12/08/18 08:29 12/09/18 08:57 Robitussin Sf PO 200 mg Q4H PRN Administration Cough Morphine Sulfate 2 mg 12/05/18 23:10 12/07/18 02:55 Morphine SLOW IVP 2 mg Q4H PRN Administration Severe Pain (7-10) Ondansetron HCl 4 mg 12/05/18 21:11 12/06/18 04:15 Zofran Odt PO 4 mg Q6H PRN Administration Nausea/Vomiting Ondansetron HCl 4 mg 12/05/18 21:11 12/06/18 14:18 Zofran IVP 4 mg Q6H PRN Administration Nausea/Vomiting Pantoprazole Sodium 40 mg 12/08/18 21:00 12/09/18 08:23 Protonix IVP 40 mg BID YOSELIN Administration Phenol 1 ml 12/07/18 14:32 12/07/18 20:49 Chloraseptic [place] 180 Ml Bot PO 1 spray BIDPRN PRN Administration Sore Throat Ranolazine 500 mg 12/06/18 21:00 12/09/18 08:22 Ranexa PO 500 mg BID YOSELIN Administration Rosuvastatin Calcium 20 mg 12/06/18 21:00 12/08/18 20:29 Crestor PO 20 mg HS YOSELIN Administration Senna/Docusate Sodium 2 tab 12/08/18 08:29 12/08/18 10:09 Senokot S PO 2 tab BID PRN Administration Constipation Sertraline HCl 50 mg 12/07/18 09:00 12/09/18 08:22 Zoloft PO 50 mg QAM YOSELIN Administration - Exam General Appearance: NAD, awake alert Eye: PERRL, anicteric sclera ENT: normocephalic atraumatic, no oropharyngeal lesions Neck: supple, symmetric, no JVD, no thyromegaly Heart: RRR, no murmur, no gallops, no rubs Respiratory: CTAB, no wheezes, no rales, no ronchi Gastrointestinal: soft, non-tender, non-distended, normal bowel sounds Extremities: no cyanosis, no clubbing, no edema Skin: normal turgor, no lesions, no rashes Neurological: cranial nerve grossly intact, normal sensation to touch, no focal deficits Musculoskeletal: normal tone, normal strength, no muscle wasting Psychiatric: normal affect, normal behavior, A&O x 3 Hosp A/P (1) Anemia due to acute blood loss Code(s): D62 - ACUTE POSTHEMORRHAGIC ANEMIA Status: Acute (2) Gastric ulcer Code(s): K25.9 - GASTRIC ULCER, UNSP ACUTE OR CHRONIC, W/O HEMOR OR PERF Status: Acute Qualifiers: Gastric ulcer chronicity: acute Gastric ulcer complication status: with hemorrhage Qualified Code(s): K25.0 - Acute gastric ulcer with hemorrhage (3) UGIB (upper gastrointestinal bleed) Code(s): K92.2 - GASTROINTESTINAL HEMORRHAGE, UNSPECIFIED Status: Acute (4) CKD (chronic kidney disease), stage III Code(s): N18.3 - CHRONIC KIDNEY DISEASE, STAGE 3 (MODERATE) Status: Chronic (5) Chronic depression Code(s): F32.9 - MAJOR DEPRESSIVE DISORDER, SINGLE EPISODE, UNSPECIFIED Status : Chronic (6) Dyslipidemia Code(s): E78.5 - HYPERLIPIDEMIA, UNSPECIFIED Status: Chronic (7) GERD (gastroesophageal reflux disease) Code(s): K21.9 - GASTRO-ESOPHAGEAL REFLUX DISEASE WITHOUT ESOPHAGITIS Status: Chronic Qualifiers: Esophagitis presence: without esophagitis Qualified Code(s): K21.9 - Gastro -esophageal reflux disease without esophagitis (8) History of Adryan fundoplication Code(s): Z98.890 - OTHER SPECIFIED POSTPROCEDURAL STATES Status: Chronic (9) Hypertension Code(s): I10 - ESSENTIAL (PRIMARY) HYPERTENSION Status: Chronic Qualifiers: Hypertension type: essential hypertension Qualified Code(s): I10 - Essential (primary) hypertension (10) Obesity (BMI 30-39.9) Code(s): E66.9 - OBESITY, UNSPECIFIED Status: Chronic - Plan old records reviewed/req, plan discussed w/ family 12/08/18- transfuse 2 unit PRBC today, check H & H after transfusion and later today and repeat labs tomorrow, continue full liquid diet, continue protonix, medication reviewed as above, symptomatic treatment, monitor in imcu for now 12/09/18- as H & H again low, will repeat H & H later today and again tomorrow, medication reviewed as above, symptomatic treatment, transfer to medical floor, continue IV PPI
[2018-12-09] MEDS: HYDROcodone/Acetaminophen 5/325 mg Tablet PO PRN ×2 (12:45→20:36)
[2018-12-09] MEDS: Senokot S 8.6-50 MG TAB PO PRN (12:50)
[2018-12-09 13:14] LABS: Hemoglobin 8.3 g/dL (12.0-16.0)
--- NOTE | 2018-12-09 13:56 | PRG ---
DATE OF SERVICE: 12/09/2018 SUBJECTIVE: Ms. Khan is currently doing well. No current complaints. Her hemoglobin again was low at 7.5 this morning. No chest pain, pressure, or shortness of breath noted. OBJECTIVE: GENERAL: Patient is a pleasant 58-year-old female, who is in no acute distress. The patient appears their stated age. VITAL SIGNS: Blood pressure 139/86, pulse 66, respirations 20. NEUROLOGIC: The patient is alert and oriented x3 with no focal neurologic deficits. HEENT: Sclerae without icterus. Mouth has moist mucous membranes with normal pallor. NECK: No JVD. Carotid upstroke brisk. No bruits bilaterally. LUNGS: Clear to auscultation with unlabored respirations. BACK: No scoliosis or kyphosis. CARDIAC: Regular rate and rhythm with normal S1 and S2. No S3 or S4 noted. No significant rubs, murmurs, thrills, or gallops noted throughout the precordium. PMI is not displaced. There is no parasternal heave. ABDOMEN: Soft, nontender, nondistended. No peritoneal signs present. No hepatosplenomegaly. No abnormal striae. EXTREMITIES: 2+ femoral and 2+ dorsalis pedis pulses. No cyanosis, clubbing, or edema. SKIN: No gross abnormalities. PERTINENT LABORATORY DATA: As above. IMPRESSION: 1. Coronary artery disease. 2. Status post stent placement. 3. Upper gastrointestinal bleed. RECOMMENDATIONS: No new recommendations noted. We would recommend resuming aspirin or Plavix when okay with GI. PLAN: To follow up with Ms. Khan as an outpatient. Job ID: [id number]
--- NOTE | 2018-12-09 16:34 | PRG ---
DATE OF SERVICE: 12/09/2018 SUBJECTIVE: The patient is without complaint today. There is no visible melena. She has poor appetite with no nausea or vomiting. PHYSICAL EXAMINATION: VITAL SIGNS: Temperature is 99.6, blood pressure is 134/73, pulse of 93. GENERAL: She is alert and conversant, in no distress. HEENT: Shows anicteric sclerae. CV: Shows normal S1 and S2. Regular rate and rhythm. CHEST: Shows breath sounds. ABDOMEN: Protuberant, but soft and nontender. She has active bowel sounds. EXTREMITIES: Show no edema. LABORATORY DATA: Hemoglobin 8.3, hematocrit 24.6. Electrolytes within normal range. Creatinine is 1.04. ASSESSMENT: 1. Status post upper gastrointestinal bleed, from bleed within fundoplication fold, status post injection and hemoclip placement with hemostasis at the time of the procedure. No evidence of bleeding since yesterday with stable blood count. 2. Acute anemia of gastrointestinal blood loss, status post transfusion yesterday with stable blood count since then. 3. Chronic kidney disease. I discussed with Dr. Arenas, can resume aspirin in 2 weeks. RECOMMENDATION: 1. Continue to trend blood count and follow the patient clinically for any evidence of recurrent GI bleed. 2. Continue pantoprazole 40 mg IV b.i.d. 3. Resume aspirin in 2 weeks, discussed with Dr. Arenas. 4. Dr. Ross is on-call for GI this weekend. Job ID: [id number]
[2018-12-09] MEDS: Rosuvastatin 20 MG TAB PO SCH (20:36)
[2018-12-10 05:59] LABS: #Eosinphils 0.2 thou/uL (0.0-0.7); #Lymphocytes 2.1 thou/uL (1.20-3.40); #Monocytes 0.8 thou/uL (0.11-0.59); #Neutrophils 3.7 thou/uL (1.40-6.50); %Basophils 0.4 % (0.0-1.0); %Eosinophils 3.5 % (0.0-10.0); %Lymphocytes 30.2 % (21.0-51.0); %Monocytes 11.6 % (0.0-10.0); %Neutrophils 54.4 % (42.0-75.0); Hemoglobin 7.7 g/dL (12.0-16.0); Mean Corpuscular HGB CONC 34.2 g/dL (32.0-36.0); Mean Corpuscular Hemoglobin 30.8 pg (27.0-31.0); Platelet Count 203 thou/uL (130-400); RBC Distribution Width 16.8 % (11.5-14.5); White Blood Cell (WBC) Count 6.8 thou/uL (4.8-10.8)
[2018-12-10] MEDS: Pantoprazole 40 MG VIAL IVP SCH ×2 (08:19→20:35)
[2018-12-10] MEDS: Folic Acid 1 MG TAB PO SCH (08:19)
[2018-12-10] MEDS: HYDROcodone/Acetaminophen 5/325 mg Tablet PO PRN ×2 (08:26→20:35)
[2018-12-10] MEDS ORDERED: IRON SUCROSE COMPLEX 100 MG/5 ML SLOW IVP SCH (14:27)
--- NOTE | 2018-12-10 14:29 | PDOC.HOSPP ---
- Subjective Subjective: Seen and examined. Sitting up in the chair, breathing well on room air. No abdominal pain. No chest pain. Patient ambulating around the halls without difficulties. Patient denies overt bleeding. All questions answered in detail. - Objective Vital Signs & Weight: Vital Signs (12 hours) Temp Pulse Resp BP BP Pulse Ox 12/10/18 11:32 98.5 F 72 17 114/59 L 94 L 12/10/18 08:16 67 19 122/72 96 12/10/18 08:11 96 12/10/18 04:46 98.7 F 78 16 139/74 93 L Weight Weight 243 lb Most Recent Monitor Data Heart Rate from ECG 66 NIBP 134/73 NIBP BP-Mean 93 Respiration from ECG 20 SpO2 98 I&O: 12/09/18 12/10/18 12/11/18 06:59 06:59 06:59 Intake Total 2250 350 Output Total 1500 Balance 750 350 Result Diagrams: 12/10/18 05:46 12/09/18 06:00 Hospitalist ROS - Review of Systems All other systems reviewed; all pertinent +/- noted in HPI/Subj - Medication Medications: Active Medications Generic Name Dose Route Start Last Admin Trade Name Freq PRN Reason Stop Dose Admin Acetaminophen 650 mg 12/05/18 21:11 12/06/18 06:17 Tylenol PO 650 mg Q4H PRN Administration Headache/Fever/Mild Pain (1-3) Hydrocodone Bitart/Acetaminophen 1 tab 12/08/18 08:29 12/10/18 08:[address] 5/325 PO 1 tab Q4H PRN Administration Moderate Pain (4-6) Folic Acid 1 mg 12/07/18 09:00 12/10/18 08:19 Folvite PO 1 mg QAM YOSELIN Administration Guaifenesin 200 mg 12/08/18 08:29 12/09/18 08:57 Robitussin Sf PO 200 mg Q4H PRN Administration Cough Morphine Sulfate 2 mg 12/05/18 23:10 12/07/18 02:55 Morphine SLOW IVP 2 mg Q4H PRN Administration Severe Pain (7-10) Ondansetron HCl 4 mg 12/05/18 21:11 12/06/18 04:15 Zofran Odt PO 4 mg Q6H PRN Administration Nausea/Vomiting Ondansetron HCl 4 mg 12/05/18 21:11 12/06/18 14:18 Zofran IVP 4 mg Q6H PRN Administration Nausea/Vomiting Pantoprazole Sodium 40 mg 12/08/18 21:00 12/10/18 08:19 Protonix IVP 40 mg BID YOSELIN Administration Phenol 1 ml 12/07/18 14:32 12/07/18 20:49 Chloraseptic [place] 180 Ml Bot PO 1 spray BIDPRN PRN Administration Sore Throat Ranolazine 500 mg 12/06/18 21:00 12/10/18 09:20 Ranexa PO 500 mg BID YOSELIN Administration Rosuvastatin Calcium 20 mg 12/06/18 21:00 12/09/18 20:36 Crestor PO 20 mg HS YOSELIN Administration Senna/Docusate Sodium 2 tab 12/08/18 08:29 12/09/18 12:50 Senokot S PO 2 tab BID PRN Administration Constipation Sertraline HCl 50 mg 12/07/18 09:00 12/10/18 08:18 Zoloft PO 50 mg QAM YOSELIN Administration - Exam General Appearance: NAD, awake alert Eye: PERRL ENT: normocephalic atraumatic, moist mucosa Neck: supple, symmetric, no lymphadenopathy Heart: RRR, no murmur, no gallops Respiratory: CTAB, no wheezes, no rales, no ronchi Gastrointestinal: soft, non-tender, no guarding, no rigidity Extremities: no edema Skin: no lesions, no rashes Neurological: cranial nerve grossly intact, no weakness, no focal deficits Musculoskeletal: normal tone Psychiatric: normal affect, A&O x 3 Hosp A/P (1) UGIB (upper gastrointestinal bleed) Code(s): K92.2 - GASTROINTESTINAL HEMORRHAGE, UNSPECIFIED Status: Acute (2) CAD (coronary artery disease) Code(s): I25.10 - ATHSCL HEART DISEASE OF [place] CORONARY ARTERY W/O ANG PCTRS Status: Chronic (3) Anemia due to acute blood loss Code(s): D62 - ACUTE POSTHEMORRHAGIC ANEMIA Status: Acute (4) Gastric ulcer Code(s): K25.9 - GASTRIC ULCER, UNSP ACUTE OR CHRONIC, W/O HEMOR OR PERF Status: Acute Qualifiers: Gastric ulcer chronicity: acute Gastric ulcer complication status: with hemorrhage Qualified Code(s): K25.0 - Acute gastric ulcer with hemorrhage (5) CKD (chronic kidney disease), stage III Code(s): N18.3 - CHRONIC KIDNEY DISEASE, STAGE 3 (MODERATE) Status: Chronic (6) Chronic depression Code(s): F32.9 - MAJOR DEPRESSIVE DISORDER, SINGLE EPISODE, UNSPECIFIED Status : Chronic (7) Dyslipidemia Code(s): E78.5 - HYPERLIPIDEMIA, UNSPECIFIED Status: Chronic (8) GERD (gastroesophageal reflux disease) Code(s): K21.9 - GASTRO-ESOPHAGEAL REFLUX DISEASE WITHOUT ESOPHAGITIS Status: Chronic Qualifiers: Esophagitis presence: without esophagitis Qualified Code(s): K21.9 - Gastro -esophageal reflux disease without esophagitis (9) History of Adryan fundoplication Code(s): Z98.890 - OTHER SPECIFIED POSTPROCEDURAL STATES Status: Chronic (10) Hypertension Code(s): I10 - ESSENTIAL (PRIMARY) HYPERTENSION Status: Chronic Qualifiers: Hypertension type: essential hypertension Qualified Code(s): I10 - Essential (primary) hypertension (11) Obesity (BMI 30-39.9) Code(s): E66.9 - OBESITY, UNSPECIFIED Status: Chronic - Plan Plan: medical unit gastroenterology consultation, recommendations appreciated cardiology consultation, recommendations are appreciated PPI therapy to heal ulcer iron deficiency anemia status post blood transfusion x3 units iron supplementation via IV patient will need to be restarted on antiplatelet therapy with aspirin and Plavix went okay with gastroenterology continue other home medications as able replace electrolytes as needed
[2018-12-10] MEDS: Iron, Sodium Ferric Gluconate 125 MG in Sodium Chloride 0.9% 100 ML IVPB SCH (16:36)
[2018-12-10] MEDS: Rosuvastatin 20 MG TAB PO SCH (20:35)
--- NOTE | 2018-12-10 23:56 | EKG ---
Test Reason : Blood Pressure : / mmHG Vent. Rate : 075 BPM Atrial Rate : 075 BPM P-R Int : 160 ms QRS Dur : 084 ms QT Int : 434 ms P-R-T Axes : 040 -08 019 degrees QTc Int : 484 ms Normal sinus rhythm Possible Left atrial enlargement Left ventricular hypertrophy Prolonged QT Abnormal ECG Confirmed by RAJENDRA LACY, CHELI ([id number]), editorial specialist JOAQUIN CHRISTIAN ([id number]) on 12/10/2018 11:56:30 PM Referred By: Confirmed By:CHELI DREW MD
[2018-12-11] MEDS: HYDROcodone/Acetaminophen 5/325 mg Tablet PO PRN ×3 (08:01→21:11)
[2018-12-11] MEDS: Folic Acid 1 MG TAB PO SCH (08:03)
[2018-12-11] MEDS: Pantoprazole 40 MG VIAL IVP SCH ×2 (08:04→20:11)
[2018-12-11] MEDS ORDERED: Iron, Sodium Ferric Gluconate 125 MG in Sodium Chloride 0.9% 100 ML IVPB SCH ×2 (09:00)
[2018-12-11 14:11] LABS: Hemoglobin 8.8 g/dL (12.0-16.0); Platelet Count 255 thou/uL (130-400)
--- NOTE | 2018-12-11 15:01 | PDOC.HOSPP ---
- Subjective Subjective: Seen and examined. Patient continues to have black tarry stools, three of them since I saw her yesterday. I then ordered a H&H which demonstrated her hemoglobin has up trended from 7.7 to 8.8. Patient with iron deficiency anemia replacing IV iron at this time. Occasionally gets epigastric discomfort, though not severe and not sustained. - Objective Vital Signs & Weight: Vital Signs (12 hours) Temp Pulse Resp BP Pulse Ox 12/11/18 08:01 97 12/11/18 08:00 98.4 F 65 18 136/72 97 Weight Weight 243 lb Most Recent Monitor Data Heart Rate from ECG 66 NIBP 134/73 NIBP BP-Mean 93 Respiration from ECG 20 SpO2 98 I&O: 12/10/18 12/11/18 12/12/18 06:59 06:59 06:59 Intake Total 1700 Balance 1700 Result Diagrams: 12/11/18 14:04 12/09/18 06:00 Hospitalist ROS - Review of Systems All other systems reviewed; all pertinent +/- noted in HPI/Subj - Medication Medications: Active Medications Generic Name Dose Route Start Last Admin Trade Name Freq PRN Reason Stop Dose Admin Acetaminophen 650 mg 12/05/18 21:11 12/06/18 06:17 Tylenol PO 650 mg Q4H PRN Administration Headache/Fever/Mild Pain (1-3) Hydrocodone Bitart/Acetaminophen 1 tab 12/08/18 08:29 12/11/18 08:01 [place] 5/325 PO 1 tab Q4H PRN Administration Moderate Pain (4-6) Folic Acid 1 mg 12/07/18 09:00 12/11/18 08:03 Folvite PO 1 mg QAM YOSELIN Administration Guaifenesin 200 mg 12/08/18 08:29 12/09/18 08:57 Robitussin Sf PO 200 mg Q4H PRN Administration Cough Ferric Sodium Gluconate 110 mls @ 110 mls/hr 12/10/18 16:00 12/10/18 16:36 Complex 125 mg/ Sodium IVPB 12/11/18 16:59 110 mls Chloride 1600 YOSELIN Administration Morphine Sulfate 2 mg 12/05/18 23:10 12/07/18 02:55 Morphine SLOW IVP 2 mg Q4H PRN Administration Severe Pain (7-10) Ondansetron HCl 4 mg 12/05/18 21:11 12/06/18 04:15 Zofran Odt PO 4 mg Q6H PRN Administration Nausea/Vomiting Ondansetron HCl 4 mg 12/05/18 21:11 12/06/18 14:18 Zofran IVP 4 mg Q6H PRN Administration Nausea/Vomiting Pantoprazole Sodium 40 mg 12/08/18 21:00 12/11/18 08:04 Protonix IVP 40 mg BID YOSELIN Administration Phenol 1 ml 12/07/18 14:32 12/07/18 20:49 Chloraseptic [place] 180 Ml Bot PO 1 spray BIDPRN PRN Administration Sore Throat Ranolazine 500 mg 12/06/18 21:00 12/11/18 08:43 Ranexa PO 500 mg BID YOSELIN Administration Rosuvastatin Calcium 20 mg 12/06/18 21:00 12/10/18 20:35 Crestor PO 20 mg HS YOSELIN Administration Senna/Docusate Sodium 2 tab 12/08/18 08:29 12/09/18 12:50 Senokot S PO 2 tab BID PRN Administration Constipation Sertraline HCl 50 mg 12/07/18 09:00 12/11/18 08:02 Zoloft PO 50 mg QAM YOSELIN Administration - Exam General Appearance: NAD, awake alert Eye: anicteric sclera ENT: normocephalic atraumatic, moist mucosa Neck: supple, no lymphadenopathy Heart: RRR, no murmur, no gallops, no rubs Respiratory: CTAB, no wheezes, no rales Gastrointestinal: soft, non-tender, non-distended, no guarding, no rigidity Extremities: no edema Skin: no lesions, no rashes Neurological: cranial nerve grossly intact, no weakness, no focal deficits Psychiatric: normal affect, A&O x 3 Hosp A/P (1) UGIB (upper gastrointestinal bleed) Code(s): K92.2 - GASTROINTESTINAL HEMORRHAGE, UNSPECIFIED Status: Acute (2) CAD (coronary artery disease) Code(s): I25.10 - ATHSCL HEART DISEASE OF [place] CORONARY ARTERY W/O ANG PCTRS Status: Chronic (3) Anemia due to acute blood loss Code(s): D62 - ACUTE POSTHEMORRHAGIC ANEMIA Status: Acute (4) Gastric ulcer Code(s): K25.9 - GASTRIC ULCER, UNSP ACUTE OR CHRONIC, W/O HEMOR OR PERF Status: Acute Qualifiers: Gastric ulcer chronicity: acute Gastric ulcer complication status: with hemorrhage Qualified Code(s): K25.0 - Acute gastric ulcer with hemorrhage (5) CKD (chronic kidney disease), stage III Code(s): N18.3 - CHRONIC KIDNEY DISEASE, STAGE 3 (MODERATE) Status: Chronic (6) Chronic depression Code(s): F32.9 - MAJOR DEPRESSIVE DISORDER, SINGLE EPISODE, UNSPECIFIED Status : Chronic (7) Dyslipidemia Code(s): E78.5 - HYPERLIPIDEMIA, UNSPECIFIED Status: Chronic (8) GERD (gastroesophageal reflux disease) Code(s): K21.9 - GASTRO-ESOPHAGEAL REFLUX DISEASE WITHOUT ESOPHAGITIS Status: Chronic Qualifiers: Esophagitis presence: without esophagitis Qualified Code(s): K21.9 - Gastro -esophageal reflux disease without esophagitis (9) History of Adryan fundoplication Code(s): Z98.890 - OTHER SPECIFIED POSTPROCEDURAL STATES Status: Chronic (10) Hypertension Code(s): I10 - ESSENTIAL (PRIMARY) HYPERTENSION Status: Chronic Qualifiers: Hypertension type: essential hypertension Qualified Code(s): I10 - Essential (primary) hypertension (11) Obesity (BMI 30-39.9) Code(s): E66.9 - OBESITY, UNSPECIFIED Status: Chronic - Plan Plan: medical unit gastroenterology consultation, recommendations appreciated cardiology consultation, recommendations are appreciated PPI therapy to heal ulcer iron deficiency anemia status post blood transfusion x3 units iron supplementation via IV Still with black tarry stools - though Hgb uptrending to 8.8 today patient will need to be restarted on antiplatelet therapy with aspirin and Plavix went okay with gastroenterology continue other home medications as able replace electrolytes as needed
--- NOTE | 2018-12-11 15:39 | PRG ---
DATE OF SERVICE: 12/11/2018 SUBJECTIVE: Ms. Khan remains in regular diet. She had two stools yesterday which were black, one was formed, one was more tarry. Today she has had two stools a little looser, which have been black. She denies any abdominal pain or dysphagia. She asks if she can get a more liberalized diet because she is on heart healthy. Medications, she is getting some iron IV today and some Protonix 40 IV q.12. OBJECTIVE: ABDOMEN: Nontender. LUNGS: Clear. HEART: Regular rate and rhythm. LABORATORY DATA: Hemoglobin is 8.8. BUN is 15 and Cr 1.4 on the . ASSESSMENT: Recurrent gastrointestinal bleed at necrotic ulceration at incarcerated or slipped hiatal hernia repair. She is at high risk for rebleeding. She continues to have some dark stools, seems to be passage of old blood. Her hemoglobin is stable and she feels well. RECOMMENDATIONS: 1. Continue IV Protonix q.12h. 2. Agree with IV iron. 3. We would check H and H again in the morning along with a basement profile. BUN is creeping up. They could be a sign of ongoing bleeding. If she has ongoing bleeding, this may be something that we have to revise surgically. She has had two endoscopies within the past 30 days. Job ID: [id number] [facility]
[2018-12-11] MEDS: Iron, Sodium Ferric Gluconate 125 MG in Sodium Chloride 0.9% 100 ML IVPB SCH (16:54)
[2018-12-11] MEDS: Rosuvastatin 20 MG TAB PO SCH (20:11)
[2018-12-12 05:47] LABS: Hemoglobin 8.3 g/dL (12.0-16.0)
[2018-12-12 06:11] LABS: Anion Gap 11 mmol/L (10-20); BUN (Urea Nitrogen) 7 mg/dL (9.8-20.1); Calc. Creatinine Clearance 127 mL/min (70-130); Calcium 8.6 mg/dL (7.8-10.44); Carbon Dioxide 27 mmol/L (22-29); Chloride 108 mmol/L (98-107); Estimated GFR-MDRD 70; Glucose 110 mg/dL (70-105); Potassium 3.9 mmol/L (3.5-5.1); Sodium 142 mmol/L (136-145)
[2018-12-12] MEDS: Folic Acid 1 MG TAB PO SCH (08:07)
[2018-12-12] MEDS: Pantoprazole 40 MG VIAL IVP SCH ×2 (08:07→20:32)
[2018-12-12] MEDS: HYDROcodone/Acetaminophen 5/325 mg Tablet PO PRN (17:11)
--- NOTE | 2018-12-12 18:07 | PDOC.HOSPP ---
- Subjective Subjective: Seen and examined. Still with black stool today, though she states it is less tarry and more brown. Hemoglobin down trended slightly from 8.8 to 8.3. Patient still with gnawing epigastric discomfort. General surgery consultation requested as per recommended by gastroenterology. The patient with upper endoscopy times two in the past 30 days, it is unlikely that another endoscopy alone will be adequate to stop this patient's bleeding if it does not improve. - Objective Vital Signs & Weight: Vital Signs (12 hours) Temp Pulse Resp BP BP Pulse Ox 12/12/18 17:08 99.1 F 88 16 152/74 H 97 12/12/18 06:59 98.5 F 71 16 136/67 95 Weight Weight 243 lb Most Recent Monitor Data Heart Rate from ECG 66 NIBP 134/73 NIBP BP-Mean 93 Respiration from ECG 20 SpO2 98 I&O: 12/11/18 12/12/18 12/13/18 06:59 06:59 06:59 Intake Total 1700 1500 Balance 1700 1500 Result Diagrams: 12/12/18 05:32 12/12/18 05:32 Hospitalist ROS - Review of Systems All other systems reviewed; all pertinent +/- noted in HPI/Subj - Medication Medications: Active Medications Generic Name Dose Route Start Last Admin Trade Name Freq PRN Reason Stop Dose Admin Acetaminophen 650 mg 12/05/18 21:11 12/06/18 06:17 Tylenol PO 650 mg Q4H PRN Administration Headache/Fever/Mild Pain (1-3) Hydrocodone Bitart/Acetaminophen 1 tab 12/08/18 08:29 12/12/18 17:11 Kohler 5/325 PO 1 tab Q4H PRN Administration Moderate Pain (4-6) Folic Acid 1 mg 12/07/18 09:00 12/12/18 08:07 Folvite PO 1 mg QAM YOSELIN Administration Guaifenesin 200 mg 12/08/18 08:29 12/09/18 08:57 Robitussin Sf PO 200 mg Q4H PRN Administration Cough Morphine Sulfate 2 mg 12/05/18 23:10 12/07/18 02:55 Morphine SLOW IVP 2 mg Q4H PRN Administration Severe Pain (7-10) Ondansetron HCl 4 mg 12/05/18 21:11 12/06/18 04:15 Zofran Odt PO 4 mg Q6H PRN Administration Nausea/Vomiting Ondansetron HCl 4 mg 12/05/18 21:11 12/06/18 14:18 Zofran IVP 4 mg Q6H PRN Administration Nausea/Vomiting Pantoprazole Sodium 40 mg 12/08/18 21:00 12/12/18 08:07 Protonix IVP 40 mg BID YOSELIN Administration Phenol 1 ml 12/07/18 14:32 12/07/18 20:49 Chloraseptic [place] 180 Ml Bot PO 1 spray BIDPRN PRN Administration Sore Throat Ranolazine 500 mg 12/06/18 21:00 12/11/18 20:11 Ranexa PO 500 mg BID YOSELIN Administration Rosuvastatin Calcium 20 mg 12/06/18 21:00 12/11/18 20:11 Crestor PO 20 mg HS YOSELIN Administration Senna/Docusate Sodium 2 tab 12/08/18 08:29 12/09/18 12:50 Senokot S PO 2 tab BID PRN Administration Constipation Sertraline HCl 50 mg 12/07/18 09:00 12/12/18 08:07 Zoloft PO 50 mg QAM YOSELIN Administration Sodium Chloride 10 ml 12/06/18 14:23 12/12/18 08:11 Flush - Normal Saline IVF 10 ml PRN PRN Administration Saline Flush - Exam General Appearance: NAD, awake alert Eye: PERRL ENT: normocephalic atraumatic, moist mucosa Neck: supple, symmetric, no lymphadenopathy Heart: RRR, no murmur, no gallops Respiratory: CTAB, no wheezes, no rales, no ronchi Gastrointestinal: soft, non-tender, no palpable masses, no guarding, no rigidity Extremities: no edema Skin: no rashes Neurological: cranial nerve grossly intact, no weakness Musculoskeletal: normal strength Psychiatric: normal affect, A&O x 3 Hosp A/P (1) UGIB (upper gastrointestinal bleed) Code(s): K92.2 - GASTROINTESTINAL HEMORRHAGE, UNSPECIFIED Status: Acute (2) CAD (coronary artery disease) Code(s): I25.10 - ATHSCL HEART DISEASE OF [place] CORONARY ARTERY W/O ANG PCTRS Status: Chronic (3) Anemia due to acute blood loss Code(s): D62 - ACUTE POSTHEMORRHAGIC ANEMIA Status: Acute (4) Gastric ulcer Code(s): K25.9 - GASTRIC ULCER, UNSP ACUTE OR CHRONIC, W/O HEMOR OR PERF Status: Acute Qualifiers: Gastric ulcer chronicity: acute Gastric ulcer complication status: with hemorrhage Qualified Code(s): K25.0 - Acute gastric ulcer with hemorrhage (5) CKD (chronic kidney disease), stage III Code(s): N18.3 - CHRONIC KIDNEY DISEASE, STAGE 3 (MODERATE) Status: Chronic (6) Chronic depression Code(s): F32.9 - MAJOR DEPRESSIVE DISORDER, SINGLE EPISODE, UNSPECIFIED Status : Chronic (7) Dyslipidemia Code(s): E78.5 - HYPERLIPIDEMIA, UNSPECIFIED Status: Chronic (8) GERD (gastroesophageal reflux disease) Code(s): K21.9 - GASTRO-ESOPHAGEAL REFLUX DISEASE WITHOUT ESOPHAGITIS Status: Chronic Qualifiers: Esophagitis presence: without esophagitis Qualified Code(s): K21.9 - Gastro -esophageal reflux disease without esophagitis (9) History of [place]ryan fundoplication Code(s): Z98.890 - OTHER SPECIFIED POSTPROCEDURAL STATES Status: Chronic (10) Hypertension Code(s): I10 - ESSENTIAL (PRIMARY) HYPERTENSION Status: Chronic Qualifiers: Hypertension type: essential hypertension Qualified Code(s): I10 - Essential (primary) hypertension (11) Obesity (BMI 30-39.9) Code(s): E66.9 - OBESITY, UNSPECIFIED Status: Chronic (12) Symptomatic anemia Code(s): D64.9 - ANEMIA, UNSPECIFIED Status: Acute - Plan Plan: medical unit gastroenterology consultation, recommendations appreciated General surgery consultation, recommendations appreciated cardiology consultation, recommendations are appreciated PPI therapy to heal ulcer iron deficiency anemia, status post blood transfusion x3 units Completed iron supplementation via IV Still with black tarry stools patient will need to be restarted on antiplatelet therapy with aspirin and Plavix went okay with gastroenterology continue other home medications as able replace electrolytes as needed
[2018-12-12] MEDS: Morphine 2 MG/ML SYRINGE SLOW IVP PRN (20:32)
[2018-12-12] MEDS: Rosuvastatin 20 MG TAB PO SCH (20:33)
[2018-12-13 05:56] LABS: Hemoglobin 8.7 g/dL (12.0-16.0); Platelet Count 269 thou/uL (130-400)
[2018-12-13 06:25] LABS: Anion Gap 12 mmol/L (10-20); BUN (Urea Nitrogen) 9 mg/dL (9.8-20.1); Calc. Creatinine Clearance 114 mL/min (70-130); Calcium 8.7 mg/dL (7.8-10.44); Carbon Dioxide 25 mmol/L (22-29); Chloride 108 mmol/L (98-107); Estimated GFR-MDRD 61; Glucose 111 mg/dL (70-105); Potassium 3.7 mmol/L (3.5-5.1); Sodium 141 mmol/L (136-145)
[2018-12-13 08:43] VITALS: BP 139/69; TEMP 97.6
[2018-12-13] MEDS: Folic Acid 1 MG TAB PO SCH (09:05)
[2018-12-13] MEDS: Pantoprazole 40 MG VIAL IVP SCH (09:06)
[2018-12-13] MEDS: HYDROcodone/Acetaminophen 5/325 mg Tablet PO PRN (09:11)
--- NOTE | 2018-12-14 03:28 | DIS ---
DATE OF ADMISSION: 12/05/2018 DATE OF DISCHARGE: 12/13/2018 REASON FOR HOSPITALIZATION: Gastrointestinal bleeding. SIGNIFICANT FINDINGS: The patient was found to have gastrointestinal bleeding of an upper etiology. PROCEDURES PERFORMED/TREATMENTS RENDERED: The patient underwent EGD on 12/06/[address] Keyes-please see full operative report for details. The patient had maximum medical therapy from Cardiology and Gastroenterology-please see full consultation notes and progress notes for details. CONDITION ON DISCHARGE: Stable. SPECIFIC INSTRUCTIONS FOR THE PATIENT/FAMILY: 1. The patient is recommended to take Protonix 1 pill b.i.d. until changed by Gastroenterology. 2. The patient is recommended to avoid acidic things that can worsen gastroesophageal reflux disease and peptic ulcer disease. 3. The patient is recommended to return to acute care hospital immediately if she is noticing any black or blood in her stool or having any abdominal pain. 4. The patient is recommended to follow up with Gastroenterology in the outpatient clinic in the next 1 to 2 weeks and on this appointment with Gastroenterology, decision will be made on when the patient can restart anti-platelet therapy including aspirin and Plavix. 5. The patient is recommended to follow up with Cardiology in the next 1 to 2 weeks. 6. The patient is recommended to follow up with primary care physician in the next 5 to 7 days. DISCHARGE MEDICATIONS: 1. Sertraline 50 mg one tablet p.o. daily. 2. Crestor 20 mg one tablet p.o. at bedtime. 3. Ranexa 500 mg one tablet p.o. b.i.d. 4. Benicar one tablet p.o. q.a.m. 5. Nitrostat 0.4 mg sublingual q.5 minutes p.r.n. chest pain. 6. Metoprolol succinate 25 mg one tablet p.o. daily. 7. Folic acid 1 mg p.o. daily. 8. Methotrexate 8 tabs of 2.5 mg tablets q.7 days. 9. Protonix 40 mg one tablet p.o. b.i.d. HOSPITAL COURSE: Ms. Khan is a pleasant 58-year-old female, who presented to [facility] on 12/06/2018 with gastrointestinal bleeding. Please see full consultation, history and physical, and all progress notes for the patient's full hospital course. On admission, the patient was also complaining of chest pain and she was seen and evaluated by Cardiology-please see full consultation notes and progress notes for details. The patient went for upper endoscopy on 12/06/[address] Keyes-please see full EGD report for details. With the patient having identified a white based ulcer within the folds of the fundoplication with ischemic appearing mucosa next to the ulcer. The patient did receive local injection of epinephrine and hemoclip. Hemostasis was achieved with EGD and large amount of clot was mobilized from the stomach and achieved adequate visualization by Gastroenterology. The patient with a history of coronary artery disease with stent placement in less than 18 months ago, was on aspirin and Plavix appropriately. These medications were stopped on discharge. Cardiology recommending restarting these medications when it is okay with Gastroenterology. Gastroenterology states that they will make this decision in the upcoming weeks in the outpatient clinic. The patient was monitored over the next 7 days and she did require blood transfusion with 3 units total of leukoreduced red blood cells being transfused. The patient's hemoglobins were monitored on a daily basis and after blood transfusions, they consistently were staying in the 8s range for three consecutive days. As of 12/13/2018, when I evaluated the patient, she states that she has had 2 bowel movements and they were brown in color and there was no black or bloody material. The patient recommended safe for discharge by all specialists with close followup in the outpatient setting. Gastroenterology stating that with the patient's history of recent fundoplication of the lower gastroesophageal sphincter, that further endoscopic intervention is likely not adequate to control this bleeding if the patient bleeds in the future. For this, General Surgery was consulted and they recommended outpatient followup only. With the patient having brown bowel movements and no longer bleeding with stable hemoglobins over the past five days, the patient was recommended safe for discharge with close followup in the outpatient clinic. The patient is recommended to continue to be off aspirin and Plavix until this is given okay by Gastroenterology. The patient was transfused iron in the intravenous form over several days after it was confirmed that she has iron deficiency anemia. The patient is recommended to take all medications as directed, most importantly, Protonix 1 tab p.o. b.i.d. until further notified by Gastroenterology. The patient recommended to continue all other home medications as directed, to be re-evaluated by primary care physician, Gastroenterology, and Cardiology in the next 1 to 2 weeks. The patient is recommended to return to acute care hospital immediately if she notices any black or blood in her stool. The patient is recommended to return to acute care hospital immediately if she is having any abdominal pain or chest pain. The patient is recommended to return to acute care hospital immediately if there are any new signs or symptoms. The patient is recommended to follow up with all specialists and take all medications as directed or return to acute care hospital immediately. Greater than 35 minutes spent coordinating care and discharge process for this patient. Job ID: [id number]
--- NOTE | 2018-12-14 07:30 | PQF ---
SAP Digester Operator Helper Crystal Reports Winform ViewerNICHOSTEFF SIFUENTES NEAL LAI [id number] [facility] [id number] CLINICAL DOCUMENTATION CLARIFICATION FORM: POST DISCHARGE Addendum to original discharge summary date: ____ Late entry note date: __ DATE: 12/14/2018 ATTN: LAI DE JESUS Please exercise your independent, professional judgment in responding to the clarification form. Clinical indicators are provided on the bottom of this form for your review Please check appropriate box(s): [ XX ] Ischemic appering mucosa due to Fundoplication [ ] Ischemic appering mucosa not due to Fundoplication [ ] Other diagnosis [ ] Unable to determine In addition, please specify: Present on Admission (POA): [ XX ] Yes [ ] No [ ] Unable to determine For continuity of documentation, please document condition throughout progress notes and discharge summary. Thank You. CLINICAL INDICATORS - SIGNS / SYMPTOMS / LABS Symptomatic anemia likely source of the patient's SOB - Documented in Consultation on 12/06 by Yonatan Garcia Recurrent UGIB - Documented in Consultation on 12/06 by Chiquis Robertson she become hypotensive, diaphoretic and was transferred to the MICU - Documented in Consultation on 12/06 by Chiquis Robertson There was White based ulcer within the somewhat twisted folds of the fundoplication,Next to ulcer there was 2 to 3 cm area ischemic appearing mucosa - Documented in Operative report There was intermittently actively bleeding site within the ischemic area - Documented in Operative report RISK FACTORS Hx of GIB was seen by GI, underwent endoscopy was found to have bleeding ulcer in area of previous fumdoplication - Documented in Consultation on 12/06 by Chiquis Robertson ABLA - Documented in Operative report TREATMENTS: Follow trend of her HGB and transfuse as necessary - Documented in Operative report Blood transfusion EGD with control of hemorrhage SAP Digester Operator Helper Crystal Reports Winform Viewer (This form is maintained as a part of the permanent medical record) 2014 [employer] All Rights Reserved Erick [email or web address] [phone] CHAD
== END 2018-12-13 14:05 | disposition home or self-care (01) | DRG 393 ==
LOC: ERS 15:08 → IMCU/EMU 18:20 → ERHOLD 20:23 → OBSVTOIN 20:23 → 2SW 12-06 08:46 → IMCU/EMU 12-06 14:53 → ONC 12-09 15:42
PROVIDERS: ADMIT Internal Medicine; ATTEND Internal Medicine
PROC: 30233N1 Transfusion of Nonautologous Red Blood Cells into Peripheral Vein, Percutaneous Approach (ICD-10-PCS; principal; 2018-12-06)
PROC: 0W3P8ZZ Control Bleeding in Gastrointestinal Tract, Via Natural or Artificial Opening Endoscopic (ICD-10-PCS; 2018-12-06)
DX: K91.89 Other postprocedural complications and disorders of digestive system (principal); K25.0 Acute gastric ulcer with hemorrhage; K55.9 Vascular disorder of intestine, unspecified; D62 Acute posthemorrhagic anemia; R07.89 Other chest pain; E78.5 Hyperlipidemia, unspecified; M19.91 Primary osteoarthritis, unspecified site; I25.10 Atherosclerotic heart disease of native coronary artery without angina pectoris; F41.9 Anxiety disorder, unspecified; F32.9 Major depressive disorder, single episode, unspecified; E66.9 Obesity, unspecified; I12.9 Hypertensive chronic kidney disease with stage 1 through stage 4 chronic kidney disease, or unspecified chronic kidney disease; K21.9 Gastro-esophageal reflux disease without esophagitis; N18.3 Chronic kidney disease, stage 3 (moderate); Z90.49 Acquired absence of other specified parts of digestive tract; Z79.82 Long term (current) use of aspirin; Z79.02 Long term (current) use of antithrombotics/antiplatelets; Z95.5 Presence of coronary angioplasty implant and graft; Z68.38 Body mass index [BMI] 38.0-38.9, adult; Y83.8 Other surgical procedures as the cause of abnormal reaction of the patient, or of later complication, without mention of misadventure at the time of the procedure
CPT/HCPCS: 36415; 36416; 36430; 71045; 74018; 80048; 80053; 81003; 82550; 82728; 83735; 83880; 84484; 85014; 85018; 85025; 85049; 86850; 86900; 86901; 87086; 90471; 90686; 93005; 93010; 93306; 94760; 96361; 96374; 99214; C9113; G0008; G0463; J0171; J1364; J2001; J2270; J2405; J2543; J2704; J2916; J3010; J3490; J7050; P9016; Q0162

== ENCOUNTER 2019-03-07 12:33 | Day surgery (SDC) | payer OTHER ==
[~2019-03-07 12:33] MED LIST: PROPOFOL 200 MG/20 ML VIAL ONE
[2019-03-07] MEDS ORDERED: CEFAZOLIN 1 GM VIAL ONE (13:19)
[2019-03-07] MEDS ORDERED: Sodium Chloride 0.9% 100 ML ONE (13:19)
[2019-03-07] MEDS ORDERED: EPINEPHrine 1 MG/ML AMP ONE (14:11)
[2019-03-07] MEDS ORDERED: Bupivacaine PF 0.5% 30 ML VIAL ONE ×2 (14:11→15:58)
[2019-03-07] MEDS ORDERED: Fentanyl 100 MCG/2 ML VIAL ONE (14:51)
[2019-03-07] MEDS ORDERED: Propofol 500 MG/50 ML VIAL ONE (14:52)
[2019-03-07] MEDS ORDERED: Midazolam HCl 2 mg/2 ml Vial ONE (15:11)
--- NOTE | 2019-03-07 16:47 | RAD ---
EXAM: XR Thoracic Spine 1 View PROVIDED CLINICAL HISTORY: Dorsal column stimulator placement COMPARISON: None FINDINGS: Single frontal view of the thoracic spine demonstrates partially visualized dorsal column stimulator wires, the tips of which terminate cranially at the superior endplate of what is labeled T5. IMPRESSION: As above.
[2019-03-07] MEDS ORDERED: HYDROcodone/Acetaminophen 5/325 mg Tablet ONE (18:15)
--- NOTE | 2019-03-07 23:30 | OP ---
DATE OF PROCEDURE: 03/07/2019 PREOPERATIVE DIAGNOSES: 1. Chronic pain syndrome. 2. Thoracic radiculopathy. POSTOPERATIVE DIAGNOSES: 1. Chronic pain syndrome. 2. Thoracic radiculopathy. PROCEDURE PERFORMED: Spinal cord stimulator lead revision x1. SPECIMENS REMOVED: 1. One spinal cord stimulator, 8-contact lead intact. 2. [place] x1 intact. ESTIMATED BLOOD LOSS: 5 mL. DESCRIPTION OF PROCEDURE: The patient was taken to the procedure room, placed prone on the procedure room table. A time-out was performed. Using DuraPrep, we prepped the back and sterile drapes were applied. We used fluoroscopy to locate the previous anchors. We anesthetized the skin and then used a scalpel to make an incision. We blunt dissected this down to fascia. We removed the left anchor, which corresponded with the right lead and pulled this out. We then anesthetized the battery pocket. We made an incision and blunt dissected this down to the battery pocket. We removed the battery and used the torque wrench to loosen the leads. We then pulled the lead that was taken out from the battery pocket to the anchor site and discarded the lead. We then tried to gain access to the epidural space at T12-L1 multiple times and we achieved the access, however, with threading the lead, the lead would consistently configure anterior and lateral. We tried the level above at T11-12 as well as T10-11. We then picked a spot at T7-8 and we inserted the needle through anesthetized skin under paramedian technique and engaged in the ligament. We used lost of resistance to air to gain access to the epidural space. We then threaded an 8-contact lead up the midline dorsal epidural space and placed it to the right of the midline lead that was already in place. Stimulation was performed with the patient awake and the patient noted paresthesia in all pain areas. We then removed the needle and stylet from the lead, taking care not to remove the lead. We slid an anchor over this and clicked it down to fixate it to the lead. We secured this to fascia using 2-0 silk suture x2. We then used a tunneling device to make a tunnel between the two anchor pockets, brought the lead to the lower anchor pocket, then used a tunneling device to make a tunnel between the previous anchor pocket and battery. This was brought in. We used vancomycin powder and placed this in all the incisions and battery pocket as bacterial prophylaxis. We attached two leads to the battery and torqued them down to affix them to the battery. Impedances were checked, which were all good. The battery was slipped into the pocket. A 2-0 Vicryl suture was used in a simple interrupted fashion to approximate all the fascial layers in multiple layers. A 3-0 Rapide Vicryl was used for a subcuticular stitch with all the skin layers and Dermabond was placed as an occlusive dressing. A sterile 4 x 4 was then placed over this with Medipore tape. The patient was taken to Day Stay under stable condition. Job ID: [id number]
== END 2019-03-07 19:29 | disposition home or self-care (01) ==
LOC: SDC 12:33
PROVIDERS: ATTEND Specialist
PROC: 00PU3MZ Removal of Neurostimulator Lead from Spinal Canal, Percutaneous Approach (ICD-10-PCS; principal; 2019-03-07)
PROC: 00HU3MZ Insertion of Neurostimulator Lead into Spinal Canal, Percutaneous Approach (ICD-10-PCS; principal; 2019-03-07)
DX: G89.4 Chronic pain syndrome (principal); M54.14 Radiculopathy, thoracic region; Z88.2 Allergy status to sulfonamides; Z88.8 Allergy status to other drugs, medicaments and biological substances
CPT/HCPCS: 72020; 76000; C1778; J0171; J0690; J2250; J2704; J3010; J3370; J3490; S0020

== ENCOUNTER → 2019-06-23 | Day surgery (SDC) | payer OTHER ==
[2019-06-22 12:33] VITALS: BMI 38.4
[~2019-06-23] MED LIST changes: +Fentanyl 100 MCG/2 ML VIAL ONE; +Iopamidol 370 76% 100 ML VIAL ONE; +Midazolam HCl 2 mg/2 ml Vial ONE; -PROPOFOL 200 MG/20 ML VIAL ONE
[2019-06-23 06:53] LABS: #Basophils 0.1 thou/uL (0.0-0.2); #Eosinphils 0.1 thou/uL (0.0-0.7); #Lymphocytes 2.8 thou/uL (1.20-3.40); #Monocytes 0.9 thou/uL (0.11-0.59); %Basophils 1.3 % (0.0-1.0); %Eosinophils 1.6 % (0.0-10.0); %Lymphocytes 40.2 % (21.0-51.0); %Monocytes 12.5 % (0.0-10.0); %Neutrophils 44.4 % (42.0-75.0); Hemoglobin 13.2 g/dL (12.0-16.0); Mean Corpuscular Hemoglobin 33.4 pg (27.0-31.0); Mean Corpuscular Volume 98.3 fL (78.0-98.0); Mean Platelet Volume 8.4 fL (7.4-10.4); Platelet Count 201 thou/uL (130-400); RBC Distribution Width 13.6 % (11.5-14.5); Red Blood Cell (RBC) Count 3.94 mill/uL (4.20-5.40); White Blood Cell (WBC) Count 6.8 thou/uL (4.8-10.8)
[2019-06-23 07:16] LABS: ALT (SGPT) 27 U/L (8-55); AST (SGOT) 28 U/L (5-34); Albumin 4.4 g/dL (3.5-5.0); Alkaline Phosphatase 88 U/L (40-110); Anion Gap 14 mmol/L (10-20); BUN (Urea Nitrogen) 13 mg/dL (9.8-20.1); Bilirubin, Total 0.5 mg/dL (0.2-1.2); Calc. Creatinine Clearance 110 mL/min (70-130); Calcium 9.7 mg/dL (7.8-10.44); Carbon Dioxide 24 mmol/L (22-29); Chloride 107 mmol/L (98-107); Estimated GFR-MDRD 60; Globulin 2.9 g/dL (2.4-3.5); Glucose 125 mg/dL (70-105); Potassium 4.2 mmol/L (3.5-5.1); Protein, Total 7.3 g/dL (6.0-8.3); Sodium 141 mmol/L (136-145)
== END ==
LOC: SDC 05:41
PROVIDERS: ATTEND Internal Medicine Cardiovascular Disease
PROC: 4A023N7 Measurement of Cardiac Sampling and Pressure, Left Heart, Percutaneous Approach (ICD-10-PCS; principal; 2019-06-23)
PROC: B2111ZZ Fluoroscopy of Multiple Coronary Arteries using Low Osmolar Contrast (ICD-10-PCS; principal; 2019-06-23)
DX: I25.119 Atherosclerotic heart disease of native coronary artery with unspecified angina pectoris (principal); I10 Essential (primary) hypertension; E78.5 Hyperlipidemia, unspecified; I44.7 Left bundle-branch block, unspecified; F41.9 Anxiety disorder, unspecified; L40.50 Arthropathic psoriasis, unspecified; E66.9 Obesity, unspecified; Z68.38 Body mass index [BMI] 38.0-38.9, adult; Z79.82 Long term (current) use of aspirin; Z79.899 Other long term (current) drug therapy; Z88.2 Allergy status to sulfonamides; Z88.8 Allergy status to other drugs, medicaments and biological substances; Z95.5 Presence of coronary angioplasty implant and graft
CPT/HCPCS: 76942; 80053; 85025; 93454; 99152; 99153; C1769; J1644; J2250; J3010; Q9967

== ENCOUNTER 2019-10-25 13:51 | Outpatient (CLI) | payer OTHER ==
--- NOTE | 2019-10-25 14:17 | ULT ---
US Soft Tissue Other History: Axillary pain Comparison: None. Findings: Real-time grayscale and color evaluation of the axilla was performed. No mass. Soft tissues are unremarkable. No adenopathy. Impression: Normal appearance of axilla. If not recently performed, mammography recommended.
== END 2019-10-25 13:52 | disposition home or self-care (01) ==
LOC: BICULT 13:51
PROVIDERS: ATTEND Obstetrics & Gynecology
DX: M79.629 Pain in unspecified upper arm (principal)
CPT/HCPCS: 76999

== ENCOUNTER 2019-12-07 15:31 | Emergency (ER) | payer BC, OTHER ==
--- NOTE | 2019-12-07 17:47 | RAD ---
EXAM: Chest PA and lateral: HISTORY: Dyspnea. Cough. Pneumonia exposure. COMPARISON: 07/10/2019 FINDINGS: Heart: Cardiomegaly. Aorta: Atherosclerotic and slightly elongated Pulmonary vessels: Normal Costophrenic angles: Costophrenic angles are clear. Lungs: No masses or consolidation. Chronic lung parenchymal changes. Pneumothorax: No pneumothorax Osseous structures: No acute osseous abnormalities. Dorsal column stimulator is noted. IMPRESSION: No acute cardiopulmonary process.
== END 2019-12-07 18:44 | disposition home or self-care (01) ==
LOC: ERS 15:31
DX: R06.02 Shortness of breath (principal); Z77.098 Contact with and (suspected) exposure to other hazardous, chiefly nonmedicinal, chemicals; I10 Essential (primary) hypertension; E78.00 Pure hypercholesterolemia, unspecified; E78.5 Hyperlipidemia, unspecified; M19.90 Unspecified osteoarthritis, unspecified site; I25.10 Atherosclerotic heart disease of native coronary artery without angina pectoris; F41.9 Anxiety disorder, unspecified; F32.9 Major depressive disorder, single episode, unspecified; Z79.82 Long term (current) use of aspirin; Z79.899 Other long term (current) drug therapy
CPT/HCPCS: 71046; 93005

== ENCOUNTER 2021-04-25 11:22 | Outpatient (CLI) | payer BC ==
[2021-04-25 12:36] LABS: #Basophils 0.1 10x3/uL (0.0-0.2); #Eosinphils 0.2 10x3/uL (0.0-0.5); #Monocytes 0.9 10x3/uL (0.0-1.1); #Neutrophils 4.2 10x3/uL (1.5-8.4); %Eosinophils 2.2 % (0.0-6.0); %Lymphocytes 31.9 % (18.0-47.0); %Monocytes 11.6 % (0.0-10.0); %Neutrophils 52.9 % (40.0-75.0); Hemoglobin 12.5 g/dL (12.0-15.5); Mean Corpuscular HGB CONC 32.7 g/dL (32.0-36.0); Mean Corpuscular Hemoglobin 31.7 pg (27.0-33.0); Mean Platelet Volume 9.7 fl (7.4-10.4); Platelet Count 250 10x3/uL (150-450); RBC Distribution Width 14.6 % (11.5-14.5); Red Blood Cell (RBC) Count 3.94 10x6/uL (3.90-5.03)
[2021-04-25 12:45] LABS: ALT (SGPT) 17 U/L (8-55); AST (SGOT) 19 U/L (5-34); Albumin 4.5 g/dL (3.5-5.0); Alkaline Phosphatase 73 U/L (40-110); Anion Gap 12 mmol/L (10-20); BUN (Urea Nitrogen) 9 mg/dL (9.8-20.1); Bilirubin, Total 0.6 mg/dL (0.2-1.2); Calc. Creatinine Clearance 0 mL/min (70-130); Calcium 9.8 mg/dL (7.8-10.44); Carbon Dioxide 30 mmol/L (22-29); Chloride 105 mmol/L (98-107); Globulin 3.1 g/dL (2.4-3.5); Glucose 160 mg/dL (70-105); Potassium 4.6 mmol/L (3.5-5.1); Protein, Total 7.6 g/dL (6.0-8.3); Sodium 142 mmol/L (136-145)
[2021-04-25 20:19] LABS: SARS-CoV-2 PCR by NAA Not Detected (NotDetected)
== END 2021-04-25 11:23 | disposition home or self-care (01) ==
LOC: LABBT 11:22
PROVIDERS: ATTEND Internal Medicine Cardiovascular Disease
DX: Z01.812 Encounter for preprocedural laboratory examination (principal); R07.9 Chest pain, unspecified; Z20.822 Contact with and (suspected) exposure to COVID-19
CPT/HCPCS: 80053; 85025; U0003; U0005

== ENCOUNTER 2021-04-28 09:38 | Day surgery (SDC) | payer BC ==
[2021-04-25 09:20] VITALS: BMI 38.4
[~2021-04-28 09:38] MED LIST changes: -Fentanyl 100 MCG/2 ML VIAL ONE; +Iopamidol 370 76% 50 ML VIAL FS ONE; -Midazolam HCl 2 mg/2 ml Vial ONE
[2021-04-28] MEDS ORDERED: Lidocaine 1% (PF) 30 ML VIAL ONE (11:33)
[2021-04-28] MEDS ORDERED: Adenosine 6 MG/2 ML VIAL ONE (12:14)
[2021-04-28] MEDS ORDERED: Nitroglycerin 100MG/250ML BOT 0 ML ONE (12:15)
[2021-04-28] MEDS ORDERED: Fentanyl 250 MCG/5 ML VIAL ONE (12:15)
[2021-04-28] MEDS ORDERED: Midazolam HCl 2 mg/2 ml Vial ONE (12:15)
[2021-04-28] MEDS ORDERED: Heparin 10,000 UNITS/ 10 ML VIAL ONE (12:48)
[2021-04-28] MEDS ORDERED: Acetaminophen/Codeine 30-300mg Tablet ONE (14:16)
== END 2021-04-28 17:59 | disposition home or self-care (01) ==
LOC: SDC 09:38
PROVIDERS: ATTEND Internal Medicine Cardiovascular Disease
PROC: B2111ZZ Fluoroscopy of Multiple Coronary Arteries using Low Osmolar Contrast (ICD-10-PCS; principal; 2021-04-28)
PROC: 4A023N7 Measurement of Cardiac Sampling and Pressure, Left Heart, Percutaneous Approach (ICD-10-PCS; principal; 2021-04-28)
DX: R07.89 Other chest pain (principal); R94.39 Abnormal result of other cardiovascular function study; R06.02 Shortness of breath; I25.10 Atherosclerotic heart disease of native coronary artery without angina pectoris; I10 Essential (primary) hypertension; E11.9 Type 2 diabetes mellitus without complications; E78.5 Hyperlipidemia, unspecified; L40.50 Arthropathic psoriasis, unspecified; Z86.16 Personal history of COVID-19; Z79.82 Long term (current) use of aspirin; Z79.899 Other long term (current) drug therapy; Z88.2 Allergy status to sulfonamides; Z88.8 Allergy status to other drugs, medicaments and biological substances; Z95.5 Presence of coronary angioplasty implant and graft
CPT/HCPCS: 85347; 93458; 93571; 99152; 99153; C1769; J0153; J1644; J2001; J2250; J3010; Q9967

== ENCOUNTER 2021-05-01 13:15 | Emergency (ER) | payer OTHER, BC ==
[2021-05-01 14:13] LABS: #Eosinphils 0.2 thou/uL (0.0-0.7); #Lymphocytes 2.5 thou/uL (1.20-3.40); #Neutrophils 4.7 thou/uL (1.40-6.50); %Basophils 0.4 % (0.0-1.0); %Eosinophils 2.6 % (0.0-10.0); %Lymphocytes 29.2 % (21.0-51.0); %Monocytes 11.8 % (0.0-10.0); Hemoglobin 12.5 g/dL (12.0-16.0); Mean Corpuscular HGB CONC 33.9 g/dL (32.0-36.0); Mean Corpuscular Hemoglobin 33.4 pg (27.0-31.0); Mean Corpuscular Volume 98.4 fL (78.0-98.0); Mean Platelet Volume 7.3 fL (7.4-10.4); Platelet Count 240 thou/uL (130-400); RBC Distribution Width 13.9 % (11.5-14.5); Red Blood Cell (RBC) Count 3.75 mill/uL (4.20-5.40); White Blood Cell (WBC) Count 8.4 thou/uL (4.8-10.8)
[2021-05-01 14:36] LABS: ALT (SGPT) 15 U/L (8-55); AST (SGOT) 20 U/L (5-34); Albumin 4.5 g/dL (3.5-5.0); Alkaline Phosphatase 79 U/L (40-110); Anion Gap 15 mmol/L (10-20); BUN (Urea Nitrogen) 10 mg/dL (9.8-20.1); Bilirubin, Total 0.6 mg/dL (0.2-1.2); Calc. Creatinine Clearance 0 mL/min (70-130); Calcium 10.4 mg/dL (7.8-10.44); Carbon Dioxide 27 mmol/L (22-29); Chloride 102 mmol/L (98-107); Globulin 3.2 g/dL (2.4-3.5); Glucose 111 mg/dL (70-105); Protein, Total 7.7 g/dL (6.0-8.3); Sodium 140 mmol/L (136-145)
[2021-05-01] MEDS ORDERED: Morphine 4 MG/ML VIAL ONE (16:06)
[2021-05-01] MEDS ORDERED: Ondansetron PF 4 MG/2 ML Vial ONE (16:06)
[2021-05-01] MEDS ORDERED: Aspirin Chewable 81 MG TAB ONE (16:06)
== END 2021-05-01 19:47 | disposition home or self-care (01) ==
LOC: ERS 13:15
DX: R07.2 Precordial pain (principal); R51.9 Headache, unspecified; E78.5 Hyperlipidemia, unspecified; I10 Essential (primary) hypertension; Z79.899 Other long term (current) drug therapy; V89.2XXA Person injured in unspecified motor-vehicle accident, traffic, initial encounter
CPT/HCPCS: 36415; 70450; 71045; 71275; 80053; 84484; 85025; 85379; 93005; 96374; 96375; J2270; J2405

== ENCOUNTER 2021-11-19 14:04 | Outpatient (CLI) | payer BC | END 2021-11-19 14:05 | disposition home or self-care (01) | LOC: BICCT 14:04 | PROVIDERS: ATTEND Psychiatry & Neurology Neurology | DX: R20.2 Paresthesia of skin (principal) | CPT/HCPCS: 70450 ==

== ENCOUNTER 2021-12-31 11:29 | Outpatient (CLI) | payer BC ==
[2021-12-31] MEDS ORDERED: Iopamidol 370 76% 100 ML VIAL ONE (12:05)
== END 2021-12-31 11:30 | disposition home or self-care (01) ==
LOC: CT 11:29
PROVIDERS: ATTEND Internal Medicine Gastroenterology
DX: K44.9 Diaphragmatic hernia without obstruction or gangrene (principal); R10.13 Epigastric pain; K21.9 Gastro-esophageal reflux disease without esophagitis; K59.00 Constipation, unspecified; K43.9 Ventral hernia without obstruction or gangrene
CPT/HCPCS: 74178; 82565; Q9967

== ENCOUNTER 2022-01-05 13:41 | Outpatient (CLI) | payer BC | END 2022-01-05 13:42 | disposition home or self-care (01) | LOC: RAD 13:41 | PROVIDERS: ATTEND Internal Medicine Critical Care Medicine | DX: R06.00 Dyspnea, unspecified (principal) | CPT/HCPCS: 71046 ==

== ENCOUNTER 2022-04-24 07:24 | Observation (INO) | payer BC ==
[2022-04-24] MEDS ORDERED: Nitroglycerin 0.4 MG TAB 1 EACH ONE (07:58)
[2022-04-24] MEDS ORDERED: Acetaminophen 325 MG TAB ONE (08:09)
[2022-04-24 08:11] LABS: #Basophils 0.1 thou/uL (0.0-0.2); #Eosinphils 0.2 thou/uL (0.0-0.7); #Lymphocytes 2.4 thou/uL (1.20-3.40); #Monocytes 0.8 thou/uL (0.11-0.59); #Neutrophils 4.6 thou/uL (1.40-6.50); %Basophils 1.1 % (0.0-1.0); %Eosinophils 2.5 % (0.0-10.0); %Lymphocytes 29.8 % (21.0-51.0); %Neutrophils 56.5 % (42.0-75.0); Hemoglobin 13.9 g/dL (12.0-16.0); Mean Corpuscular HGB CONC 35.3 g/dL (32.0-36.0); Mean Corpuscular Hemoglobin 34.6 pg (27.0-31.0); Mean Platelet Volume 7.5 fL (7.4-10.4); Platelet Count 240 10x3/uL (130-400); RBC Distribution Width 13.3 % (11.5-14.5); White Blood Cell (WBC) Count 8.2 10x3/uL (4.8-10.8)
[2022-04-24 08:14] LABS: ALT (SGPT) 32 U/L (8-55); AST (SGOT) 31 U/L (5-34); Albumin 4.5 g/dL (3.4-4.8); Alkaline Phosphatase 93 U/L (40-110); Anion Gap 16 mmol/L (10-20); BUN (Urea Nitrogen) 10 mg/dL (9.8-20.1); Bilirubin, Total 0.7 mg/dL (0.2-1.2); Calc. Creatinine Clearance 0 mL/min (70-130); Calcium 9.9 mg/dL (7.8-10.44); Carbon Dioxide 24 mmol/L (23-31); Chloride 102 mmol/L (98-107); Estimated GFR 72; Globulin 3.6 g/dL (2.4-3.5); Glucose 130 mg/dL (80-115); Protein, Total 8.1 g/dL (5.8-8.1); Sodium 138 mmol/L (136-145)
[2022-04-24] MEDS ORDERED: Ketorolac Tromethamine 30 MG/ML VIAL ONE (08:20)
[2022-04-24] MEDS ORDERED: Aspirin Chewable 81 MG TAB ONE (09:24)
[2022-04-24 11:06] LABS: Troponin I Less than 0.010 ng/mL (< 0.028)
[2022-04-24] MEDS ORDERED: Nitroglycerin 0.4 MG TAB (25 Tab Bottle) SL PRN (11:38)
[2022-04-24 14:35] VITALS: BMI 39.8
[2022-04-24 14:59] LABS: Troponin I Less than 0.010 ng/mL (< 0.028)
[2022-04-24] MEDS: Acetaminophen 500 MG TAB PO SCH ×2 (15:29→20:55)
[2022-04-24] MEDS: Famotidine 20 MG TAB PO SCH (20:56)
[2022-04-24] MEDS ORDERED: Rosuvastatin 20 MG TAB PO SCH (21:00)
[2022-04-25 05:08] LABS: #Basophils 0.1 thou/uL (0.0-0.2); #Eosinphils 0.2 thou/uL (0.0-0.7); #Lymphocytes 1.7 thou/uL (1.20-3.40); #Monocytes 0.9 thou/uL (0.11-0.59); #Neutrophils 3.5 thou/uL (1.40-6.50); %Basophils 0.9 % (0.0-1.0); %Eosinophils 3.4 % (0.0-10.0); %Lymphocytes 26.7 % (21.0-51.0); %Monocytes 14.7 % (0.0-10.0); %Neutrophils 54.3 % (42.0-75.0); Hemoglobin 12.7 g/dL (12.0-16.0); Mean Corpuscular HGB CONC 34.5 g/dL (32.0-36.0); Mean Corpuscular Hemoglobin 34.2 pg (27.0-31.0); Mean Corpuscular Volume 99.2 fl (78.0-98.0); Mean Platelet Volume 7.6 fL (7.4-10.4); Platelet Count 202 10x3/uL (130-400); RBC Distribution Width 13.5 % (11.5-14.5); Red Blood Cell (RBC) Count 3.71 mill/uL (4.20-5.40); White Blood Cell (WBC) Count 6.4 10x3/uL (4.8-10.8)
[2022-04-25 05:36] LABS: Anion Gap 13 mmol/L (10-20); BUN (Urea Nitrogen) 13 mg/dL (9.8-20.1); Calc. Creatinine Clearance 112 mL/min (70-130); Carbon Dioxide 27 mmol/L (23-31); Cardiac Risk 6.6 (Less than 4.5); Chloride 104 mmol/L (98-107); Cholesterol 244 mg/dl (< 200 Desired); Estimated GFR 70; Glucose 151 mg/dL (80-115); HDL Cholesterol 37 mg/dL (>60 Neg Risk); LDL Cholesterol, Calculated 127 mg/dL; Potassium 4.2 mmol/L (3.5-5.1); Sodium 140 mmol/L (136-145); Triglycerides 398 mg/dL (Less than 150)
[2022-04-25 08:34] VITALS: BP 122/77; TEMP 98.6
[2022-04-25] MEDS ORDERED: [UNRECOGNIZED DRUG - OTHER] PO SCH (09:00)
[2022-04-25] MEDS ORDERED: Sertraline 25 MG TAB PO SCH (09:00)
[2022-04-25] MEDS ORDERED: DULoxetine 60 MG CAP PO SCH (09:00)
[2022-04-25] MEDS ORDERED: HYDROCHLOROTHIAZIDE PO SCH (09:00)
[2022-04-25] MEDS ORDERED: Clopidogrel Bisulfate 75 MG TAB PO SCH (09:00)
[2022-04-25] MEDS ORDERED: Non-Formulary Item 1 EACH (Sertraline Hcl [Sertraline Hcl] 50 MG Tablet) PO SCH (09:00)
[2022-04-25] MEDS ORDERED: Losartan 25 MG TAB PO SCH (09:00)
[2022-04-25] MEDS ORDERED: OLMESARTAN PO SCH (09:00)
[2022-04-25] MEDS: Acetaminophen 500 MG TAB PO SCH (10:27)
[2022-04-25] MEDS: Famotidine 20 MG TAB PO SCH (10:28)
== END 2022-04-25 11:15 | disposition home or self-care (01) ==
LOC: ERS 07:24 → 2SW 09:39
PROVIDERS: ADMIT Hospitalist; ATTEND Nurse Practitioner Family
DX: R07.9 Chest pain, unspecified (principal); I10 Essential (primary) hypertension; E78.00 Pure hypercholesterolemia, unspecified; Z79.82 Long term (current) use of aspirin; Z79.899 Other long term (current) drug therapy
CPT/HCPCS: 36415; 71045; 80048; 80053; 80061; 84484; 85025; 93005; 94760; 96372; 96374; G0378; J1650; J1885; U0003; U0005

== ENCOUNTER 2022-11-12 15:18 | Outpatient (CLI) | payer BC | END 2022-11-12 15:19 | disposition home or self-care (01) | LOC: RAD 15:18 | PROVIDERS: ATTEND Internal Medicine Critical Care Medicine | DX: R06.00 Dyspnea, unspecified (principal); K44.9 Diaphragmatic hernia without obstruction or gangrene | CPT/HCPCS: 71046 ==